=== PATIENT | female | born 1960 | race Caucasian/White ===

== ENCOUNTER 2016-03-19 15:34 | Outpatient (RCR) | payer MEDICARE, MEDICAID ==
--- OUTSIDE RECORDS SUMMARY | 2016-01-16 10:59 | XMS REPORT | Continuity of Care Document ---
Author Author [facility] Organization 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 Medications Current Home Medications Medication Dose Units Route Directions Days/Qty Instructions Start Date Aspirin 325 Mg 325 Mg Oral Daily 07/29/11 Gabapentin 300 Mg 300 Mg Oral Three Times A Day 08/28/13 Cholecalciferol (Vitamin D3) 1,000 Unit 1,000 Unit Oral Twice A Day 08/28/13 Buspirone Hcl 15 Mg 15 Mg Oral Three Times A Day 03/06/14 Multivits W-Fe,Other Min/Lut 1 Each 1 Each Oral Daily 03/06/14 Montelukast Sodium 10 Mg 10 Mg Oral Daily 03/06/14 Calcium Carbonate/Vitamin D3 1 Each 1 Each Oral Three Times A Day Oxycodone Hcl/Acetaminophen 1 Tab 1 Tab Oral Four Times Daily Docusate Sodium 100 Mg 100 Mg Oral Daily 09/13/14 Chromium/Herbal Complex No.238 1 Each 1 Each Oral Twice A Day Fluticasone Propionate 9.9 Ml 1 [place] Nasal Daily 07/08/15 Hydrochlorothiazide 12.5 Mg 12.5 Mg Oral Daily 07/08/15 Loratadine 10 Mg 10 Mg Oral Daily 07/08/15 Omeprazole 20 Mg 20 Mg Oral Daily 07/08/15 Lactobacillus Acidophilus 1 Each 1 Each Oral Three Times A Day 07/07 Levothyroxine Sodium 50 Mcg 50 Mcg Oral Daily 07/08/15 Levothyroxine Sodium 112 Mcg 112 Mcg Oral Daily 07/08/15 Ascorbic Acid 500 Mg 500 Mg Oral Daily 07/08/15 Lansoprazole 15 Mg 15 Mg Oral Daily 07/08/15 Estrogens Conjugated 30 Gm 0.625 Mg Vaginal Daily 07/08/15 Ginkgo Biloba Extract 120 Mg 120 Mg Oral Twice A Day 07/08/15 L.acidoph & Paracasei,B.lactis 1 Each 2 Each Oral Daily 07/08/15 Echinacea 400 Mg 400 Mg Oral As Needed as needed for Congestion 11/14 Past Home Medications Medication Directions Ordered Status [Water Pill] , 02/10/08 Discontinued Lansoprazole 30 Mg Cap, 02/10/08 Discontinued Meloxicam 7.5 Mg Tablet, 02/10/08 Discontinued Hydrochlorothiazide 12.5 Mg Cap, 02/10/08 Discontinued Multivitamins 1 Ea Tablet, 1 Tab Oral Daily 02/10/08 Discontinued Biotin 1,000 Mcg Tablet, 02/10/08 Discontinued Hydrocodone Bit/Acetaminophen 1 Each Tablet, 1 Each Oral Twice A Day Discontinued Levothyroxine Sodium 200 Mcg Tablet, 200 Mcg Oral Daily 07/29/11 Discontinued Levothyroxine Sodium 175 Mcg Tablet, 1 Each Oral Every Other Day 07/29/11 Discontinued Gabapentin 100 Mg Cap, 100 Mg Oral Three Times A Day 07/29/11 Discontinued Buspirone Hcl 5 Mg Tablet, 1.5 Tab Oral Three Times A Day 07/29/11 Discontinued [Hctz] , 07/29/11 Discontinued Buspirone Hcl 5 Mg Tablet, 7.5 Mg Oral Q Am And Noon 09/07/11 Discontinued Hydrochlorothiazide 25 Mg Tab, 0.5 Tab Oral Bedtime 09/07/11 Discontinued Buspirone Hcl 5 Mg Tablet, 15 Mg Oral Three Times A Day 09/07/11 Discontinued [Alive] , 1 Tab Oral Daily 09/07/11 Discontinued Lansoprazole 15 Mg Capsule.dr, 15 Mg Oral Bedtime 09/07/11 Discontinued Acetaminophen/Hydrocodone Bitart 1 Ea Tablet, 1 Tab Oral Four Times Daily Discontinued Echinacea 400 Mg Capsule, 750 Mg Oral Twice A Day 06/20/12 Discontinued Pravastatin Sodium 80 Mg Tablet, 40 Mg Oral Three Times A Day 06/20/12 Discontinued Potassium Gluconate 90 Mg Tablet, 595 Mg Oral Twice A Day 06/20/12 Discontinued Green Tea [place] Extract 250 Mg Capsule, 400 Mg Oral Three Times A Day Discontinued Fluticasone Propionate 16 Gm [place], 2 Sprays Each Nostril Daily 06/20/12 Discontinued [Calcium] , 500 Mg Oral Twice A Day 06/20/12 Discontinued Multivitamin 1 Each Tablet, 2 Each Oral Daily 06/20/12 Discontinued [Levothyroxine Sodium] , 162 Mcg Oral Daily 08/28/13 Discontinued Hydrochlorothiazide 12.5 Mg Tablet, 12.5 Mg Oral Bedtime 08/28/13 Discontinued Echinacea Purpurea Aerial 350 Mg Capsule, 350 Mg Oral Twice A Day 08/28/13 Discontinued Pravastatin Sodium 40 Mg Tablet, 40 Mg Oral Bedtime 08/28/13 Discontinued Calcium Carbonate/Vitamin D3 1 Each Tablet, 2 Tab Oral Daily 08/28/13 Discontinued Metformin Hcl (Glucophage) 500 Mg Tablet, 500 Mg Oral Twice A Day With Meals 08/28/13 Discontinued Pseudoephedrine Hcl 30 Mg Tab, 60 Mg Oral Twice A Day 08/28/13 Discontinued Selenium 200 Mcg Capsule, 200 Mcg Oral Three Times A Day 08/28/13 Discontinued Gluc 2KCL/Chondr/Monica Hy/Hy Ac 1 Each Capsule, 1 Tab Oral Daily 08/28/13 Discontinued Docusate Sodium 100 Mg Tablet, 100 Mg Oral Twice A Day as needed for Constipation 08/28/13 Discontinued Lactobac Cmb #3/Fos/Pantethine 1 Each Capsule, 1 Cap Oral Three Times A Day 08/28/13 Discontinued Meclizine Hcl 25 Mg Tab.chew, 25 Mg Oral Daily as needed for Motion Sickness 08/28/13 Discontinued Cetirizine Hcl 10 Mg Capsule, 10 Mg Oral Daily 08/28/13 Discontinued Hydrocodone Bit/Acetaminophen 1 Each Tablet, 1 Each Oral Every 4HRS as needed for Pain 03/08/14 Discontinued Docusate Sodium 100 Mg Cap, 100 Mg Oral Twice A Day 03/08/14 Discontinued Hydrochlorothiazide 25 Mg Tablet, 25 Mg Oral Bedtime 09/13/14 Discontinued [Echinacea Whole Herb] , 750 Mg Oral Twice A Day 09/13/14 Discontinued [Potassium Gluconate] , 595 Mg Oral Twice A Day 09/13/14 Discontinued Mometasone Furoate 17 Gm Naspr, 1 [place] Each Nostril Twice A Day 09/13/14 Discontinued Social History Social History Problem Response Recorded Date/Time Alcohol Use Occasionally Uses 07/11/2015 9:15am Recreational Drug Use No 07/11/2015 9:15am Recent Foreign Travel No 07/11/2015 9:15am HIV/AIDS No 07/11/2015 9:15am Smoking Status Never a Smoker 07/11/2015 9:15am Query Response Start Date Stop Date Smoking Status Never a Smoker Hospital Discharge Instructions Patient Instructions Physician Instructions Plan of Care/Instructions/FU: 13 days [place] Activity as Tolerated: Yes Discharge Diet: Regular Diet Other Inst to Patient Follow up Appt: Make appointment for 1 week. Instructions: No strenuous activity. May shower in 24 hours, no tub bath or soaking. Use incentive spirometer at home as directed. No Smoking Skin/Wound Care: May remove bandages in 24 hours. Keep clean and dry. Symptoms to Report: Appetite Changes, Extremity Discoloration, Numbness/Tingling, Swelling Increased, Bleeding Excessive, Eyesight Changes, Pain Increased, Urine Color Change, Constipation(Persistent), Fever over 101 degree F, Pain/Pressure in chest, Urinating Difficulty, Cough Up/Vomit Blood, Heart Beat Irreg/Pounding, Pain/Pressure in jaw, Vaginal Bleeding Increase, Cramps in feet or legs, Lightheadedness, Pain/Pressure in shoulder, Diarrhea(Persistent), Memory Changes Suddenly, Questions/Concerns, Weight gain consecutive days, Dizziness/Fainting, Nausea/Vomiting, Shortness of Breath, Weight gain over 2 pounds If questions or concerns contact your physician Or seek help at emergency department. Care Plan Patient Instructions:: 13 days [place] Plan of Care Discharge Date 07/11/15 1:50pm Instructions/Education Provided ANESTHESIA INSTRUCTIONS POSTOP Lipoma (DC) Prescriptions See Medication Section Functional Status No functional status results. Allergies, Adverse Reactions, Alerts Allergen Type Severity Reaction Status Last Updated Penicillins ([id number]) Adverse Reaction Mild N/V, HAS RECEIVED ANCEF W/O PROBLEM Active 09/20/14 Sulfa (Sulfonamide Antibiotics) ([id number]) Allergy Severe TETANY Active 02/10/08 tetracycline ([id number]) Adverse Reaction Mild N/V Active 02/10/08 Erythromycin base Allergy Unknown projectile vomitin Active 03/06/14 clavulanic acid ([id number]) Allergy Unknown head fullness Active 03/06/14 amoxicillin ([id number]) Adverse Reaction Mild N/V Active 02/10/08 meloxicam ([id number]) Allergy Unknown memory loss Active 03/06/14 Immunizations Name Given Type Date of Pneumonia Vaccine 03/08/12 Historical Date of Influenza Vaccine 11/29/13 Historical Vital Signs Acute Vital Signs Vital Response Date/Time Temperature (Fahrenheit) 97.7 degrees F (97.6 - 99.5) 07/11/2015 12:40pm Temperature (Calculated Celsius) 36.13565 degrees C (36.4 - 37.5) 07/11/2015 12:40pm Temperature Source Temporal 07/11/2015 12:40pm Pulse Rate (adult) 85 bpm (60 - 90) 07/11/2015 12:40pm Respiratory Rate 18 bpm (12 - 24) 07/11/2015 12:40pm O2 Sat by Pulse Oximetry 96 % (88 - 100) 07/11/2015 12:40pm Blood Pressure 115/82 mm Hg 07/11/2015 12:40pm Pain Pain Intensity 6 07/11/2015 12:40pm Height (Feet) 5 feet 07/11/2015 9:15am Height (Inches) 9.50 inches 07/11/2015 9:15am Height (Calculated Centimeters) 176.061103 cm 07/11/2015 9:15am Weight (Pounds) 328 pounds 07/11/2015 9:15am Weight (Ounces) 8.0 oz 07/11/2015 9:15am Weight (Calculated Grams) 425578.095 gm 07/11/2015 9:15am Weight (Calculated Kilograms) 149.864085 kilograms 07/11/2015 9:15am Calculated BMI 47.8 07/11/2015 9:15am Results Pending Laboratory Results Test Name Collection Date/Time Pending Microbiology Results Procedure Source Collection Date/Time Procedures Procedure Status Date Provider(s) Excision of lesion Completed 07/11/15 DADA OSBORN DO Encounters Encounter Location Arrival/Admit Date Discharge/Depart Date Attending Provider Departed Surgical Day Care [facility] 07/11/15 8:55am 1:50pm DADA OSBORN DO Departed Clinic [facility] 07/08/15 12:32pm 07/08/15 3: 43pm DADA OSBORN DO
[2016-02-10 09:25] LABS: BASOPHILS # (AUTO) 0.1 10^3/uL (0.0-0.1); BASOPHILS % (AUTO) 1 % (0-10); EOSINOPHILS # (AUTO) 0.4 10^3/uL (0.0-0.3); EOSINOPHILS % (AUTO) 5 % (0-10); LYMPHOCYTES # (AUTO) 1.5 X 10^3 (1.0-4.0); LYMPHOCYTES % (AUTO) 19 % (12-44); MEAN CORPUSCULAR HEMOGLOBIN 29 PG (25-34); MEAN CORPUSCULAR HGB CONC 33 G/DL (32-36); MEAN CORPUSCULAR VOLUME 85 FL (80-99); MEAN PLATELET VOLUME 9.3 FL (7.4-10.4); MONOCYTES # (AUTO) 0.7 X 10^3 (0.0-1.0); MONOCYTES % (AUTO) 8 % (0-12); NEUTROPHILS # (AUTO) 5.3 X 10^3 (1.8-7.8); NEUTROPHILS % (AUTO) 67 % (42-75); PLATELET COUNT 347 10^3/uL (130-400); RED BLOOD COUNT 4.67 10^6/uL (4.35-5.85); RED CELL DISTRIBUTION WIDTH 14.4 % (10.0-14.5); WHITE BLOOD COUNT 7.9 10^3/uL (4.3-11.0)
[2016-02-10 09:57] LABS: ALANINE AMINOTRANSFERASE 29 U/L (0-55); ALBUMIN 4.2 G/DL (3.2-4.5); ANION GAP 10 MMOL/L (5-14); ASPARTATE AMINO TRANSFERASE 24 U/L (5-34); BILIRUBIN,TOTAL 0.3 MG/DL (0.1-1.0); BLOOD UREA NITROGEN 16 MG/DL (7-18); BUN/CREATININE RATIO 21; CALCIUM 9.3 MG/DL (8.5-10.1); CARBON DIOXIDE 26 MMOL/L (21-32); CHLORIDE 104 MMOL/L (98-107); CREATININE SERUM 0.78 MG/DL (0.60-1.30); GFR ESTIMATED > 60; GLUCOSE 118 MG/DL (70-105); POTASSIUM 3.8 MMOL/L (3.6-5.0); SODIUM 140 MMOL/L (135-145); TOTAL PROTEIN 7.1 G/DL (6.4-8.2)
[2016-02-10 10:17] LABS: THYROID STIMULATING HORMONE 6.47 UIU/ML (0.35-4.94)
[2016-02-11 07:59] LABS: THYROGLOBULIN LEVELC <0.20 ng/mL (1.60-59.90)
[~2016-03-19 15:34] MED LIST: ALIVE PO; ASCO500T6 PO; ASP325TEC PO; BSP5T PO; BUSP15TA60 PO; CALC-656 PO; CALC-80 PO; CALCIUM PO; CETI10CA8 PO; CHOL100061 PO; CHRO1TAB8 PO; DCS100C PO; DOCU100T2 PO; DOCU100T7 PO; ECHI350C PO; ECHI400C16 PO; ECHI400C3 PO; ECHINACEA PO; EST30C VG; FLT05NA16 NSEACH; FLUT9.9S NS; GABA-488 PO; GBPN100C PO; GINK120C PO; GLUC-113 PO; GREE250C PO; HCT25T PO; HCTZ12.5T; HYDR-34 PO; HYDR-3454 PO; HYDR12.5 PO; HYDR12.56 PO; HYDR1TAB86 PO; HYDR25TA4 PO; L.AC1CAP6 PO; LACT1CAP28 PO; LACT1CAP57 PO; LANS15CA PO; LANS15CA5 PO; LEVO112T55 PO; LEVO175T2 PO; LEVO200T30 PO; LEVO50TA6 PO; LNS30CCR; LORA10TA76 PO; Levothyroxine Sodium PO; MECL-133 PO; MELO7.5T; MMT17NA NSEACH; MONT10TA24 PO; MTF500T PO; MULT-856 PO; MULT-963 PO; MULT1TAB63 PO; NFBIOT1000; OMEP20TA7 PO; OXYC1TAB25 PO; POTA2TAB2 PO; POTASSIUM GLUCONATE PO; PRAV40TA PO; PRAV80TA2 PO; PS30T PO; SELE200C PO; WATER PILL; hctz
== END 2016-04-15 | disposition home or self-care (01) ==
LOC: ONC 15:34
PROVIDERS: ATTEND Internal Medicine Hematology & Oncology
DX: C73 Malignant neoplasm of thyroid gland (principal); E89.0 Postprocedural hypothyroidism; E66.9 Obesity, unspecified; Z79.899 Other long term (current) drug therapy
CPT/HCPCS: 36415; 80053; 84432; 84443; 85025; 86800; 99213

== ENCOUNTER 2016-04-11 17:56 | Emergency (ER) | payer MEDICARE, MEDICAID ==
[~2016-04-11] VITALS: Ht 175.3 cm; Wt 149.7 kg
--- OUTSIDE RECORDS SUMMARY | 2016-04-11 18:01 | XMS REPORT | Continuity of Care Document ---
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.] Twice A Day 06/20/12 Discontinued Green Tea [address] Extract 250 Mg Capsule, 400 Mg Oral Three Times A Day Discontinued Fluticasone Propionate 16 Gm [place], 2 Sprays Each Nostril Daily 06/20/12 Discontinued [...] Discontinued Mometasone Furoate 17 Gm Naspr, 1 [place] Each Nostril Twice A Day 09/13/14 Discontinued [...] Physician Instructions Plan of Care/Instructions/FU: 13 days [place] Activity as Tolerated: Yes Discharge Diet: Regular [...] department. Care Plan Patient Instructions:: 13 days [place] Plan of Care Discharge Date 07/11/15 1:50pm Instructions/Education Provided ANESTHESIA INSTRUCTIONS POSTOP Lipoma (DC) Prescriptions See Medication Section Functional Status No functional status results. Allergies, Adverse Reactions, Alerts Allergen Type Severity Reaction Status Last Updated Penicillins ([id number]) Adverse Reaction Mild N/V, HAS RECEIVED ANCEF W/O PROBLEM Active 09/20/14 Sulfa (Sulfonamide Antibiotics) ([id number]) Allergy Severe TETANY Active 02/10/08 tetracycline ([id number]) Adverse Reaction Mild N/V Active 02/10/08 Erythromycin base Allergy Unknown projectile vomitin Active 03/06/14 clavulanic acid ([id number]) Allergy Unknown head fullness Active 03/06/14 amoxicillin ([id number]) Adverse Reaction Mild N/V Active 02/10/08 meloxicam ([id number]) Allergy Unknown memory loss Active 03/06/14 Immunizations Name Given Type Date of Pneumonia Vaccine 03/08/12 Historical Date of Influenza Vaccine 11/29/13 Historical Vital Signs Acute Vital Signs Vital Response Date/Time Temperature (Fahrenheit) 97.7 degrees F (97.6 - 99.5) 07/11/2015 12:40pm Temperature (Calculated Celsius) 36.86533 degrees C (36.4 - 37.5) 07/11/2015 12:40pm [...] 9.50 inches 07/11/2015 9:15am Height (Calculated Centimeters) 176.937067 cm 07/11/2015 9:15am Weight (Pounds) 328 pounds 07/11/2015 9:15am Weight (Ounces) 8.0 oz 07/11/2015 9:15am Weight (Calculated Grams) 801152.095 gm 07/11/2015 9:15am Weight (Calculated Kilograms) 149.015289 kilograms 07/11/2015 9:15am Calculated BMI 47.8 07/11/2015 9:15am Results Pending Laboratory Results Test Name Collection Date/Time Pending Microbiology Results Procedure Source Collection Date/Time Procedures Procedure Status Date Provider(s) Excision of lesion Completed 07/11/15 DADA OSBORN DO Encounters Encounter Location Arrival/Admit Date Discharge/Depart Date Attending Provider Departed Surgical Day Care [facility] 07/11/15 8:55am 1:50pm DADA OSBORN DO Departed Clinic [facility] 07/08/15 12:32pm 07/08/15 3: 43pm DADA OSBORN DO
[2016-04-11 19:08] VITALS: BP 150/87
[2016-04-11] MEDS ORDERED: oxyCODONE/APAP 5/325MG (PERCOCET 5) TABLET PO STA (21:11)
[2016-04-11] MEDS ORDERED: CYCLOBENZAPRINE 10 MG (FLEXERIL) TAB PO STA (21:11)
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
[2016-04-11 21:22] LABS: BILIRUBIN,URINE NEGATIVE (NEGATIVE); KETONES,URINE NEGATIVE (NEGATIVE); NITRITE,URINE NEGATIVE (NEGATIVE); PH,URINE 6.5 (5-9); PROTEIN,URINE NEGATIVE (NEGATIVE)
[2016-04-11 21:23] LABS: LEUKOCYTE ESTERASE ,URINE NEGATIVE (NEGATIVE); UROBILINOGEN,URINE NORMAL (NORMAL); WBC,URINE RARE /HPF
[2016-04-11 22:47] LABS: BASOPHILS # (AUTO) 0.1 10^3/uL (0.0-0.1); BASOPHILS % (AUTO) 1 % (0-10); EOSINOPHILS # (AUTO) 0.2 10^3/uL (0.0-0.3); EOSINOPHILS % (AUTO) 3 % (0-10); LYMPHOCYTES # (AUTO) 2.3 X 10^3 (1.0-4.0); LYMPHOCYTES % (AUTO) 28 % (12-44); MEAN CORPUSCULAR HEMOGLOBIN 29 PG (25-34); MEAN CORPUSCULAR HGB CONC 34 G/DL (32-36); MEAN CORPUSCULAR VOLUME 85 FL (80-99); MEAN PLATELET VOLUME 9.5 FL (7.4-10.4); MONOCYTES # (AUTO) 0.6 X 10^3 (0.0-1.0); MONOCYTES % (AUTO) 8 % (0-12); NEUTROPHILS # (AUTO) 4.8 X 10^3 (1.8-7.8); NEUTROPHILS % (AUTO) 61 % (42-75); PLATELET COUNT 322 10^3/uL (130-400); RED BLOOD COUNT 4.95 10^6/uL (4.35-5.85); RED CELL DISTRIBUTION WIDTH 13.9 % (10.0-14.5)
[2016-04-11 23:02] LABS: ALANINE AMINOTRANSFERASE 29 U/L (0-55); ALBUMIN 4.2 G/DL (3.2-4.5); ANION GAP 14 MMOL/L (5-14); ASPARTATE AMINO TRANSFERASE 24 U/L (5-34); BILIRUBIN,TOTAL 0.4 MG/DL (0.1-1.0); BLOOD UREA NITROGEN 10 MG/DL (7-18); BUN/CREATININE RATIO 12; CALCIUM 9.8 MG/DL (8.5-10.1); CARBON DIOXIDE 25 MMOL/L (21-32); CHLORIDE 100 MMOL/L (98-107); CREATININE SERUM 0.86 MG/DL (0.60-1.30); GFR ESTIMATED > 60; GLUCOSE 141 MG/DL (70-105); POTASSIUM 3.6 MMOL/L (3.6-5.0); SODIUM 139 MMOL/L (135-145); TOTAL PROTEIN 7.5 G/DL (6.4-8.2)
== END 2016-04-11 23:26 | disposition home or self-care (01) ==
LOC: EDUNIT# 17:56 → ER 17:57
DX: S39.012A Strain of muscle, fascia and tendon of lower back, initial encounter (principal); E11.9 Type 2 diabetes mellitus without complications; Z79.82 Long term (current) use of aspirin; Z79.899 Other long term (current) drug therapy; X58.XXXA Exposure to other specified factors, initial encounter; Y99.8 Other external cause status
CPT/HCPCS: 36415; 80053; 81000; 85025; 99283

== ENCOUNTER → 2016-09-15 | Outpatient (CLI) | payer MEDICARE, MEDICAID ==
--- NOTE | 2016-09-15 20:07 | Diagnostic Imaging Report ---
Ultrasound of the right axilla. INDICATION: Lump felt in the axilla region. FINDINGS: The right axilla is scanned around the palpable area with no underlying lesion seen. IMPRESSION: Negative study. Clinical follow-up is recommended. ACR BI-RADS Category 1: Negative. Dictated by: Dictated on workstation # [id number]
== END ==
LOC: RAD 09:21
PROVIDERS: ATTEND Surgery
DX: R22.9 Localized swelling, mass and lump, unspecified (principal)

== ENCOUNTER 2016-12-17 23:04 | Emergency (ER) | payer MEDICARE, MEDICAID ==
[~2016-12-17] VITALS: Ht 175.3 cm; Wt 149.7 kg
--- OUTSIDE RECORDS SUMMARY | 2016-12-17 23:18 | XMS REPORT ---
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 89524960 Problem Pain in joint, ankle and foot M25.579 Active 609190085 Problem Lipoma of unspecified site D17.9 Active 42510694 Problem Neuropathy G62.9 Active 527545405 Problem Skin tags, multiple acquired L91.8 Active 983832731 Problem Lump or mass in breast N63 Active 08522466 Problem Dysfunction of eustachian tube H69.80 Active 29138413 Problem Stress incontinence in female N39.3 Active 06133842 Problem History of thyroid cancer Z85.850 Active 369372780 Problem Dizziness and giddiness R42 Active 010914398 Problem Myalgia M79.1 Active 52627052 Problem Obesity, unspecified E66.9 Active 891611112 Problem Hypothyroidism, unspecified E03.9 Active 435988546 Problem Other chronic pain G89.29 Active 396937904 Problem Migraine without aura and without status migrainosus, not intractable G43.009 Active 634884841 Problem Anxiety disorder, unspecified F41.9 Active 974743518 Problem Dysmetabolic syndrome E88.81 Active 531661752 ALLERGIES Unknown Allergies SOCIAL HISTORY No smoking Hx information available PLAN OF CARE VITAL SIGNS MEDICATIONS Medication Instructions Dosage Frequency Start Date End Date Duration Status SudoGest 60 mg Orally every 6 hrs as needed 1 tablet as needed Active RESULTS No Results PROCEDURES No Known procedures IMMUNIZATIONS No Known Immunizations
--- OUTSIDE RECORDS SUMMARY | 2016-12-17 23:18 | XMS REPORT ---
Author Author WING RAO Organization [employer] Address Unknown Phone Unavailable Care Team Providers Care Towboat Captain Name Role Phone WING RAO CP Unavailable Allergies No Known Allergies Problems Problem Type Condition ICD-9 Code Onset Dates Condition Status Problem Unspecified hypothyroidism 244.9 Active Problem Shortness of breath 786.05 Active Problem Obesity, unspecified 278.00 Active Problem Unspecified myalgia and myositis 729.1 Active Problem Dysfunction of Eustachian tube 381.81 Active Problem Migraine without aura, without mention of intractable migraine without mention of status migrainosus 346.10 Active Problem Lipoma of unspecified site 214.9 Active Problem Need for prophylactic vaccination and inoculation, Influenza V04.81 Active Problem Pain in joint, ankle and foot 719.47 Active Problem Acute sinusitis, unspecified 461.9 Active Problem Lump or mass in breast 611.72 Active Problem Intestinal disaccharidase deficiencies and disaccharide malabsorption 271.3 Active Problem Benign neoplasm of skin, site unspecified 216.9 Active Problem Dizziness and giddiness 780.4 Active Problem Anxiety state, unspecified 300.00 Active Problem Dysmetabolic Syndrome X 277.7 Active Problem Other chronic pain 338.29 Active Medications Medication Code System Code Instructions Start Date End Date Status Dosage Oxycodone-Acetaminophen [facility] [address]-97 5-325 MG Orally 4 times a day. PT MUST SCHEDULE F/U FOR FURTHER REFILLS July 25, 2014 1 tablet as needed Results No Known Results Summary Purpose [employer] Submission
--- OUTSIDE RECORDS SUMMARY | 2016-12-17 23:18 | XMS REPORT ---
Author Author WING RAO Organization [employer] Address Unknown Phone Unavailable Care Team Providers Care Bathroom Tiling Professional Name Role Phone WING RAO CP Unavailable Allergies No Known Allergies Problems Problem Type Condition Code Onset Dates Condition Status Problem Hypothyroidism, unspecified E03.9 Active Problem Lipoma of unspecified site D17.9 Active Problem Obesity, unspecified E66.9 Active Problem History of thyroid cancer Z85.850 Active Problem Skin tags, multiple acquired L91.8 Active Problem Stress incontinence in female N39.3 Active Problem Dysfunction of eustachian tube H69.80 Active Problem Pain in joint, ankle and foot M25.579 Active Problem Migraine without aura and without status migrainosus, not intractable G43.009 Active Problem Myalgia M79.1 Active Problem Dysmetabolic syndrome E88.81 Active 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 Results No Known Results Summary Purpose [employer] Submission
--- OUTSIDE RECORDS SUMMARY | 2016-12-17 23:18 | XMS REPORT ---
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 13802932 Problem Pain in joint, ankle and foot M25.579 Active 286191112 Problem Lipoma of unspecified site D17.9 Active 46114040 Problem Neuropathy G62.9 Active 459548136 Problem Skin tags, multiple acquired L91.8 Active 936254442 Problem Lump or mass in breast N63 Active 49919729 Problem Dysfunction of eustachian tube H69.80 Active 17305284 Problem Stress incontinence in female N39.3 Active 45255743 Problem History of thyroid cancer Z85.850 Active 809767740 Problem Dizziness and giddiness R42 Active 915562507 Problem Myalgia M79.1 Active 63306592 Problem Obesity, unspecified E66.9 Active 653177553 Problem Hypothyroidism, unspecified E03.9 Active 727078840 Problem Other chronic pain G89.29 Active 588669922 Problem Migraine without aura and without status migrainosus, not intractable G43.009 Active 088725580 Problem Anxiety disorder, unspecified F41.9 Active 081446261 Problem Dysmetabolic syndrome E88.81 Active 885861003 ALLERGIES Substance Reaction Event Type Date Status Tetra-Formula/Tetra-Ettes Unknown Drug Allergy Mar, Active Sulfamethoxazole-TMP DS Unknown Drug Allergy Mar, Active Penicillin V Potassium Unknown Drug Allergy Mar, Active Meloxicam Unknown Drug Allergy Mar, Active Bee Venom (honey Bee) Unknown Non Drug Allergy Mar, Active SOCIAL HISTORY No smoking Hx information available PLAN OF CARE VITAL SIGNS Height 68.75 in 2016-03-27 Weight 331.3 lbs 2016-03-27 Temperature 98.2 degrees Fahrenheit 2016-03-27 Heart Rate 74 bpm 2016-03-27 Respiratory Rate 22 2016-03-27 BMI 49.28 kg/m2 2016-03-27 Blood pressure systolic 126 mmHg 2016-03-27 Blood pressure diastolic 70 mmHg 2016-03-27 MEDICATIONS Medication Instructions Dosage Frequency Start Date End Date Duration Status Flonase 50 MCG/ACT Nasally 2 times a day 1 spray in each nostril 12h 30 Active Premarin 0.625 MG/GM Active Claritin 10 MG Orally Once a day 1 tablet 24h 30 Active Aspirin 325 mg take 1 tablet (325 mg) by oral route once daily Nov, Active Emergen-C Vitamin C Active BusPIRone HCl 15 MG TAKE ONE TABLET BY MOUTH THREE TIMES DAILY 30 Active Hydrochlorothiazide 12.5 MG Orally Once a day 1 tablet 24h 30 Active Omeprazole 20 mg 1 capsule 24h 30 Active Centrum Silver 1 Tablet 1 time per day June, Active Colace 100 mg take 1 capsule (100 mg) by oral route once daily June, Active Levothyroxine Sodium 175 MCG Orally Once a day 1 tablet 24h Active Oxycodone-Acetaminophen 5-325 MG Orally 4 times a day. 1 tablet as needed Mar, 28 days Active Vitamin D3 1,000 unit 5 1 time per day June, Active Acidophilus 1 Capsule 3 times per day June, Active SudoGest 60 mg Orally every 6 hrs as needed 1 tablet as needed Active Gabapentin 300 MG TAKE ONE CAPSULE BY MOUTH THREE TIMES DAILY 30 Active Green Tea 200 MG Active Singulair 10 MG TAKE ONE TABLET BY MOUTH ONCE DAILY 30 Active RESULTS Name Result Date Reference Range AMERITOX 2016-03-27 PROCEDURES Procedure Date Ordered Related Diagnosis Body Site No Charge Mar 27, 2016 [facility] VISIT ESTABLISHED PATIENT Mar 27, 2016 Office Visit, Est Pt., Level 3 Mar 27, 2016 IMMUNIZATIONS No Known Immunizations
--- OUTSIDE RECORDS SUMMARY | 2016-12-17 23:18 | XMS REPORT ---
Author Author WING RAO Organization [employer] Address Unknown Phone Unavailable Care Team Providers Care Service Delivery Director Name Role Phone WING RAO CP Unavailable Allergies, Adverse Reactions, Alerts Substance Reaction Event Type Tetra-Formula/Tetra-Ettes Info Not Available Drug Allergy Sulfamethoxazole-TMP DS Info Not Available Drug Allergy Penicillin V Potassium Info Not Available Drug Allergy Meloxicam Info Not Available Drug Allergy Bee Venom (honey Bee) Info Not Available Non Drug Allergy Problems Problem Type Condition Code Onset Dates Condition Status Problem Unspecified hypothyroidism 244.9 Active Problem Shortness of breath 786.05 Active Problem Obesity, unspecified 278.00 Active Problem Unspecified myalgia and myositis 729.1 Active Assessment Bilateral tinnitus H93.13 Active Problem Dysfunction of Eustachian tube 381.81 Active Assessment Fibromyalgia M79.7 Active Assessment Headache R51 Active Problem Migraine without aura, without mention of intractable migraine without mention of status migrainosus 346.10 Active Problem Lipoma of unspecified site 214.9 Active Problem Need for prophylactic vaccination and inoculation, Influenza V04.81 Active Problem Pain in joint, ankle and foot 719.47 Active Problem Acute sinusitis, unspecified 461.9 Active Assessment Hip pain, left M25.552 Active Problem Lump or mass in breast 611.72 Active Assessment GERD (gastroesophageal reflux disease) K21.9 Active Assessment Knee pain, right M25.561 Active Problem Intestinal disaccharidase deficiencies and disaccharide malabsorption 271.3 Active Problem Benign neoplasm of skin, site unspecified 216.9 Active Problem Dizziness and giddiness 780.4 Active Problem Anxiety state, unspecified 300.00 Active Assessment Obesity (BMI 35.0-39.9 without comorbidity) E66.01 Active Problem Dysmetabolic Syndrome X 277.7 Active Problem Other chronic pain 338.29 Active Medications Medication Code System Code Instructions Start Date End Date Status Dosage Pantoprazole Sodium [facility] [address]-16 40 MG Orally Once a day Dec 07, 2014 1 tablet Singulair [facility] 25919576591 10 MG TAKE ONE TABLET BY MOUTH ONCE DAILY Claritin [facility] 16533811906 10 MG Orally Once a day 1 tablet Pseudoephedrine HCl [facility] [address]-50 60 MG Orally every 6 hrs Dec 07, 2014 1 tablet as needed Levothyroxine Sodium [facility] [address]-90 112 MCG Orally Once a day 1 tablet MetFORMIN HCl ER [facility] 46094332638 500 MG TAKE ONE TABLET BY MOUTH TWICE DAILY Levothyroxine Sodium [facility] [address]-54 50 MCG Orally Once a day 1 tablet Gabapentin [facility] 92307255702 300 MG TAKE ONE CAPSULE BY MOUTH THREE TIMES DAILY pravastatin [facility] [address]-08 40 mg Feb 26, 2014 1 tablet by Oral route 1 time per day Take at bedtime. Avoid Grapefruit Vitamin D3 [facility] 338[address]78 1,000 unit July 26, 2013 5 1 time per day Acidophilus [facility] [address]-91 July 26, 2013 1 Capsule 3 times per day Centrum Silver [facility] [address]-45 July 26, 2013 1 Tablet 1 time per day Oxycodone-Acetaminophen [facility] [address]-28 5-325 MG Orally 4 times a day. PT MUST ATTEND 11/28 APPT FOR FURTHER REFILLS July 25, 2014 1 tablet as needed BusPIRone HCl [facility] 56210222188 15 MG TAKE ONE TABLET BY MOUTH THREE TIMES DAILY Selenium [facility] 16363-[address]94 200 mcg July 26, 2013 3 times per day Flonase [facility] 96939646998 50 MCG/ACT Nasally 2 times a day 1 spray in each nostril Aspirin [facility] [address]-69 325 mg Dec 24, 2011 take 1 tablet (325 mg) by oral route once daily Colace [facility] [address]-00 100 mg July 26, 2013 take 1 capsule (100 mg) by oral route once daily Procedures Procedure Coding System Code Date X-RAY EXAM OF KNEE, 1 OR 2 CPT-4 52098 Dec 07, 2014 [facility] VISIT ESTABLISHED PATIENT CPT-4 G0467 Dec 07, 2014 X-RAY EXAM OF HIP CPT-4 97212 Dec 07, 2014 Office Visit, Est Pt., Level 3 CPT-4 70089 Dec 07, 2014 Vital Signs Date/Time: Dec 07, 2014 Temperature 97.2 F Weight 322 lbs Height 70 in BMI 46.20 Index Blood Pressure Diastolic 72 mmHg Blood Pressure Systolic 126 mmHg Cardiac Monitoring Heart Rate 88 bpm Results No Known Results Summary Purpose [employer] Submission
--- OUTSIDE RECORDS SUMMARY | 2016-12-17 23:18 | XMS REPORT ---
Author Author WING RAO Organization [employer] Address Unknown Phone Unavailable Care Team Providers Care Lease Out Man Name Role Phone WING RAO CP Unavailable [...] Start Date End Date Status Dosage Oxycodone-Acetaminophen [facility] [address]-55 5-325 MG Orally 4 times a day. July 25, 2014 1 tablet as needed Results No Known Results Summary Purpose [employer] Submission
--- OUTSIDE RECORDS SUMMARY | 2016-12-17 23:18 | XMS REPORT ---
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 77575166 Problem Pain in joint, ankle and foot M25.579 Active 840621054 Problem Lipoma of unspecified site D17.9 Active 69580512 Problem Neuropathy G62.9 Active 996641189 Problem Skin tags, multiple acquired L91.8 Active 518868082 Problem Lump or mass in breast N63 Active 72631097 Problem Dysfunction of eustachian tube H69.80 Active 68258066 Problem Stress incontinence in female N39.3 Active 48476492 Problem History of thyroid cancer Z85.850 Active 538421338 Problem Dizziness and giddiness R42 Active 241351643 Problem Myalgia M79.1 Active 02749434 Problem Obesity, unspecified E66.9 Active 744984766 Problem Hypothyroidism, unspecified E03.9 Active 138173686 Problem Other chronic pain G89.29 Active 828951983 Problem Migraine without aura and without status migrainosus, not intractable G43.009 Active 967244622 Problem Anxiety disorder, unspecified F41.9 Active 081790582 Problem Dysmetabolic syndrome E88.81 Active 870078601 ALLERGIES Substance Reaction Event Type Date Status Tramadol HCl Unknown Drug Allergy Apr, Active Tetra-Formula/Tetra-Ettes Unknown Drug Allergy Apr, Active Sulfamethoxazole-TMP DS Unknown Drug Allergy Apr, Active Penicillin V Potassium Unknown Drug Allergy Apr, Active Meloxicam Unknown Drug Allergy Apr, Active Augmentin Unknown Drug Allergy Apr, Active Bee Venom (honey Bee) Unknown Non Drug Allergy Apr, Active SOCIAL HISTORY No smoking Hx information available PLAN OF CARE Activity Details Follow Up prn Reason: VITAL SIGNS Height 68.75 in 2016-04-07 Weight 332.4 lbs 2016-04-07 Temperature 98.2 degrees Fahrenheit 2016-04-07 Heart Rate 78 bpm 2016-04-07 Respiratory Rate 20 2016-04-07 BMI 49.44 kg/m2 2016-04-07 Blood pressure systolic 128 mmHg 2016-04-07 Blood pressure diastolic 78 mmHg 2016-04-07 MEDICATIONS Medication Instructions Dosage Frequency Start Date End Date Duration Status Gabapentin 300 MG TAKE ONE CAPSULE BY MOUTH THREE TIMES DAILY 30 Active Aspirin 325 mg take 1 tablet (325 mg) by oral route once daily Nov, Active BusPIRone HCl 15 MG TAKE ONE TABLET BY MOUTH THREE TIMES DAILY 30 Active Oxycodone-Acetaminophen 5-325 MG Orally 4 times a day. 1 tablet as needed Mar, 28 days Active Claritin 10 MG Orally Once a day 1 tablet 24h 30 Active Levothyroxine Sodium 175 MCG Orally Once a day 1 tablet 24h Active Emergen-C Vitamin C Active Flonase 50 MCG/ACT Nasally 2 times a day 1 spray in each nostril 12h 30 Active Acidophilus 1 Capsule 3 times per day June, Active Colace 100 mg take 1 capsule (100 mg) by oral route once daily June, Active Hydrochlorothiazide 12.5 MG Orally Once a day 1 tablet 24h 30 Active Vitamin D3 1,000 unit 5 1 time per day June, Active Green Tea 200 MG Active Omeprazole 20 mg 1 capsule 24h 30 Active Centrum Silver 1 Tablet 1 time per day June, Active SudoGest 60 mg Orally every 6 hrs as needed 1 tablet as needed Active Premarin 0.625 MG/GM Active RESULTS No Results PROCEDURES Procedure Date Ordered Related Diagnosis Body Site [facility] VISIT ESTABLISHED PATIENT Apr 07, 2016 Office Visit, Est Pt., Level 3 Apr 07, 2016 IMMUNIZATIONS No Known Immunizations
--- OUTSIDE RECORDS SUMMARY | 2016-12-17 23:19 | XMS REPORT ---
Author Author WING RAO Organization [employer] Address Unknown Phone Unavailable Care Team Providers Care Hospice Volunteer Coordinator Name Role Phone WING RAO CP Unavailable [...] Start Date End Date Status Dosage Oxycodone-Acetaminophen [facility] [address]-14 5-325 MG Orally 4 times a day. July 25, 2014 1 tablet as needed Results No Known Results Summary Purpose [employer] Submission
--- OUTSIDE RECORDS SUMMARY | 2016-12-17 23:19 | XMS REPORT ---
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 98716039 Problem Pain in joint, ankle and foot M25.579 Active 475693492 Problem Lipoma of unspecified site D17.9 Active 58841982 Problem Neuropathy G62.9 Active 133400760 Problem Skin tags, multiple acquired L91.8 Active 809697268 Problem Lump or mass in breast N63 Active 52789984 Problem Dysfunction of eustachian tube H69.80 Active 50137922 Problem Stress incontinence in female N39.3 Active 52867289 Problem History of thyroid cancer Z85.850 Active 260554495 Problem Dizziness and giddiness R42 Active 853492755 Problem Myalgia M79.1 Active 34653566 Problem Obesity, unspecified E66.9 Active 518312892 Problem Hypothyroidism, unspecified E03.9 Active 431680077 Problem Other chronic pain G89.29 Active 671618238 Problem Migraine without aura and without status migrainosus, not intractable G43.009 Active 083625073 Problem Anxiety disorder, unspecified F41.9 Active 339271938 Problem Dysmetabolic syndrome E88.81 Active 376072356 ALLERGIES Unknown Allergies SOCIAL HISTORY No smoking Hx information available PLAN OF CARE VITAL SIGNS MEDICATIONS Medication Instructions Dosage Frequency Start Date End Date Duration Status SudoGest 60 mg Orally every 6 hrs as needed 1 tablet as needed Active RESULTS No Results PROCEDURES No Known procedures IMMUNIZATIONS No Known Immunizations
--- OUTSIDE RECORDS SUMMARY | 2016-12-17 23:19 | XMS REPORT ---
Author Author WING RAO Organization [employer] Address Unknown Phone Unavailable Care Team Providers Care Junior Web Developer Name Role Phone WING RAO CP Unavailable [...] Instructions Start Date End Date Status Dosage Pseudoephedrine HCl [facility] [address]-32 60 MG Orally every 6 hrs Dec 07, 2014 1 tablet as needed Results No Known Results Summary Purpose [employer] Submission
--- OUTSIDE RECORDS SUMMARY | 2016-12-17 23:19 | XMS REPORT ---
Author Author WING RAO Organization [employer] Address Unknown Phone Unavailable Care Team Providers Care Human Resources Manager Name Role Phone WING RAO CP Unavailable [...] Problem Other chronic pain 338.29 Active Medications No Known Medications Procedures Procedure Coding System Code Date LAB NOT BILLED BY [facility] CPT-4 NOBLL Dec 11, 2014 VENIPUNCT, ROUTINE* CPT-4 94045 Dec 11, 2014 GLYCATED HEMOGLOBIN TEST CPT-4 24148 Dec 11, 2014 Results Name Result Date Reference Range Unit Abnormality Flag ROUTINE VENIPUNCTURE Summary Purpose [employer] Submission
--- OUTSIDE RECORDS SUMMARY | 2016-12-17 23:19 | XMS REPORT ---
Author Author WING RAO Organization [employer] Address Unknown Phone Unavailable Care Team Providers Care Under Cutting Machine Operator Name Role Phone WING RAO CP Unavailable [...] Problem Other chronic pain G89.29 Active Medications No Known Medications Results No Known Results Summary Purpose [employer] Submission
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
--- OUTSIDE RECORDS SUMMARY | 2016-12-17 23:19 | XMS REPORT ---
Author Author JENNIFER PELAEZ [facility] eClinicalWorks Address Unknown Phone Unavailable Care Team Providers Care Manager Infusion Name Role Phone JENNIFER PELAEZ CP Unavailable Allergies, Adverse Reactions, Alerts Substance [...] Problem History of thyroid cancer Z85.850 Active Assessment Papanicolaou smear Z12.4 Active Problem Skin tags, multiple acquired L91.8 Active Assessment History of thyroid cancer Z85.850 Active Assessment Skin tags, multiple acquired L91.8 Active Problem Stress incontinence in female N39.3 Active Problem Dysfunction of eustachian tube H69.80 Active Problem Pain in joint, ankle and foot M25.579 Active Problem Migraine without aura and without status migrainosus, not intractable G43.009 Active Problem Myalgia M79.1 Active Assessment Morbid obesity, unspecified obesity type E66.01 Active Assessment Pelvic pressure in female N94.89 Active Assessment Vaginal discharge N89.8 Active Assessment Stress incontinence in female N39.3 Active Problem Dysmetabolic syndrome E88.81 Active Problem 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 Problem Lump or mass in breast N63 Active Problem Anxiety disorder, unspecified F41.9 Active Problem Dizziness and giddiness R42 Active Problem Other chronic pain G89.29 Active Medications Medication Code System Code Instructions Start Date End Date Status Dosage Emergen-C Vitamin C [facility] [address] Orally not defined Claritin [facility] 03219088798 10 MG Orally Once a day 1 tablet Oxycodone-Acetaminophen [facility] [address]-09 5-325 MG Orally 4 times a day. July 25, 2014 1 tablet as needed Singulair [facility] 21032688833 10 MG TAKE ONE TABLET BY MOUTH ONCE DAILY Vitamin D3 [facility] [address] 1,000 unit July 26, 2013 5 1 time per day Wall Mat Emerson [facility] [address] Dec 14, 2014 as directed Gabapentin [facility] 77700607433 300 MG TAKE ONE CAPSULE BY MOUTH THREE TIMES DAILY Levothyroxine Sodium [facility] [address]-01 112 MCG Orally Once a day 1 tablet Pseudoephedrine HCl [facility] 85994390489 60 MG Orally every 6 hrs 1 tablet as needed Levothyroxine Sodium [facility] [address]-02 50 MCG Orally Once a day 1 tablet pravastatin [facility] [address]-35 40 mg Feb 26, 2014 1 tablet by Oral route 1 time per day Take at bedtime. Avoid Grapefruit Acidophilus [facility] [address]-17 July 26, 2013 1 Capsule 3 times per day Centrum Silver [facility] [address]-18 July 26, 2013 1 Tablet 1 time per day Flonase [facility] 08382690828 50 MCG/ACT Nasally 2 times a day 1 spray in each nostril MetFORMIN HCl ER [facility] 19411221957 500 MG TAKE ONE TABLET BY MOUTH TWICE DAILY Aspirin [facility] [address]-86 325 mg Dec 24, 2011 take 1 tablet (325 mg) by oral route once daily BusPIRone HCl [facility] 65250022997 15 MG TAKE ONE TABLET BY MOUTH THREE TIMES DAILY Omeprazole [facility] 32572502374 20 MG Orally Once a day 1 capsule Colace [facility] [address]-89 100 mg July 26, 2013 take 1 capsule (100 mg) by oral route once daily Procedures Procedure Coding System Code Date [facility] C[facility] NOBLL Feb 06, 2015 No Charge CPT-4 39896 Feb 06, 2015 URINALYSIS, AUTO, W/O SCOPE CPT-4 71217 Feb 06, 2015 FORMERLY [facility] VISIT ESTABLISHED PATIENT CPT-4 G0467 Feb 06, 2015 SPECIMEN HANDLING CPT-4 68163 Feb 06, 2015 Office Visit, Est Pt., Level 4 CPT-4 18647 Feb 06, 2015 Vital Signs Date/Time: Feb 06, 2015 Temperature 98.6 F Weight 321.4 lbs Height 70 in BMI 46.11 Index Blood Pressure Diastolic 74 mmHg Blood Pressure Systolic 122 mmHg Cardiac Monitoring Heart Rate 84 bpm Results Name Result Date Reference Range Unit Abnormality Flag UA LONG DIP (IN HOUSE) ----WOLF trace [id number] ----NIT negative 20150206 ----SG 1.010 20150206 ----KET negative [id number] ----JONI negative [id number] ----GLU negative 20150206 ----Odor none 20150206 ----pH 7.0 20150206 ----BLO negative [id number] ----URO 0.2 20150206 ----Protein negative [id number] ----Lot # [id number] ----Exp date [id number] ----Clarity clear [id number] ----Color yellow [id number] Summary Purpose eClinicalWorks Submission
--- OUTSIDE RECORDS SUMMARY | 2016-12-17 23:19 | XMS REPORT ---
Author Author WING RAO Organization [employer] Address Unknown Phone Unavailable Care Team Providers Care Therapeutic Riding Instructor Name Role Phone WING RAO CP Unavailable [...]
--- OUTSIDE RECORDS SUMMARY | 2016-12-17 23:19 | XMS REPORT ---
Author Author WING RAO Organization [employer] Address Unknown Phone Unavailable Care Team Providers Care Belt Press Operator Name Role Phone WING RAO CP [...] Start Date End Date Status Dosage Oxycodone-Acetaminophen [facility] [address]-91 5-325 MG Orally 4 times a day. July 25, 2014 1 tablet as needed Results No Known Results Summary Purpose eClinicalWorks Submission
--- OUTSIDE RECORDS SUMMARY | 2016-12-17 23:19 | XMS REPORT ---
Author Author WING RAO Organization [facility] Address [address] [place] [address] Care Team Providers Care Residential Building Inspector Name Role Phone WING RAO Unavailable PROBLEMS Type Condition ICD9-CM Code [id number] Code Onset Dates Condition Status SNOMED Code Problem Obesity, unspecified E66.9 Active 472736038 Problem Pain in joint, ankle and foot M25.579 Active 033672308 Problem Lipoma of unspecified site D17.9 Active 33427954 Problem Stress incontinence in female N39.3 Active 35162523 Problem History of thyroid cancer Z85.850 Active 778927427 Problem Myalgia M79.1 Active 46299957 Problem Dysfunction of eustachian tube H69.80 Active 44255904 Problem Skin tags, multiple acquired L91.8 Active 229381626 Problem Migraine without aura and without status migrainosus, not intractable G43.009 Active 035686087 Problem Lump or mass in breast N63 Active 72259649 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 1 tablet as needed Jan, Active RESULTS No Results PROCEDURES No Known procedures IMMUNIZATIONS No Known Immunizations
--- OUTSIDE RECORDS SUMMARY | 2016-12-17 23:20 | XMS REPORT ---
Author Author WING RAO [facility] Address [address] [place] [address] Care Team Providers Care Shoe Cleaner Name Role Phone WING RAO Unavailable PROBLEMS Type Condition ICD9-CM Code OKP34-RP Code Onset Dates Condition Status SNOMED Code Problem Obesity, unspecified E66.9 Active 068779227 Problem Migraine without aura and without status migrainosus, not intractable G43.009 Active 170924080 Problem Hypothyroidism, unspecified E03.9 Active 709649098 Problem Hypertension, benign I10 Active 29915251 Problem Neuropathy G62.9 Active 925925154 Problem Stress incontinence in female N39.3 Active 35903872 Problem Dysmetabolic syndrome E88.81 Active 049553710 Problem Skin tags, multiple acquired L91.8 Active 427254396 Problem History of thyroid cancer Z85.850 Active 074548687 Problem Lipoma of unspecified site D17.9 Active 08493653 Problem Pain in joint, ankle and foot M25.579 Active 428149960 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
--- OUTSIDE RECORDS SUMMARY | 2016-12-17 23:20 | XMS REPORT ---
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 52800181 Problem Pain in joint, ankle and foot M25.579 Active 594747012 Problem Lipoma of unspecified site D17.9 Active 27100347 Problem Neuropathy G62.9 Active 047801882 Problem Skin tags, multiple acquired L91.8 Active 820063409 Problem Lump or mass in breast N63 Active 92115720 Problem Dysfunction of eustachian tube H69.80 Active 13926458 Problem Stress incontinence in female N39.3 Active 16063637 Problem History of thyroid cancer Z85.850 Active 923339555 Problem Dizziness and giddiness R42 Active 007908527 Problem Myalgia M79.1 Active 27416092 Problem Obesity, unspecified E66.9 Active 915917300 Problem Hypothyroidism, unspecified E03.9 Active 506603112 Problem Other chronic pain G89.29 Active 154057049 Problem Migraine without aura and without status migrainosus, not intractable G43.009 Active 105813586 Problem Anxiety disorder, unspecified F41.9 Active 706915240 Problem Dysmetabolic syndrome E88.81 Active 025190810 ALLERGIES Unknown Allergies SOCIAL HISTORY No smoking Hx information available PLAN OF CARE VITAL SIGNS MEDICATIONS Medication Instructions Dosage Frequency Start Date End Date Duration Status Oxycodone-Acetaminophen 5-325 MG Orally 4 times a day. 1 tablet as needed Mar, 28 days Active RESULTS No Results PROCEDURES No Known procedures IMMUNIZATIONS No Known Immunizations
--- OUTSIDE RECORDS SUMMARY | 2016-12-17 23:20 | XMS REPORT ---
Author Author WING RAO Organization [employer] Address Unknown Phone Unavailable Care Team Providers Care Potato Chip Maker Name Role Phone WING RAO CP Unavailable [...] Start Date End Date Status Dosage Oxycodone-Acetaminophen [facility] [address]-55 5-325 MG Orally 4 times a day. July 25, 2014 1 tablet as needed Results No Known Results Summary Purpose eClinicalWorks Submission
--- OUTSIDE RECORDS SUMMARY | 2016-12-17 23:20 | XMS REPORT ---
Author Author TREVIN VALDEZ [facility] eClinicalWorks Address Unknown Phone Unavailable Care Team Providers Care Furnace Cleaner Name Role Phone TREVIN VALDEZ CP Unavailable Allergies No Known Allergies Problems [...] Problem Acute sinusitis, unspecified 461.9 Active Assessment Osteoarthritis of right knee M17.9 Active Problem Lump or mass in breast 611.72 Active Assessment Acute medial meniscus tear of right knee S83.241A Active Problem Intestinal disaccharidase deficiencies and disaccharide malabsorption 271.3 Active Problem Benign neoplasm of skin, site unspecified 216.9 Active Problem Dizziness and giddiness 780.4 Active Problem Anxiety state, unspecified 300.00 Active Problem Dysmetabolic Syndrome X 277.7 Active Problem Other chronic pain 338.29 Active Medications No Known Medications Procedures Procedure Coding System Code Date Office Visit, Est Pt., Level 2 CPT-4 61906 Jan 03, 2015 FOR[facility] VISIT ESTABLISHED PATIENT CPT-4 G0467 Jan 03, 2015 Vital Signs Date/Time: Jan 03, 2015 Blood Pressure Diastolic 78 mmHg Blood Pressure Systolic 120 mmHg Height 70 in Results No Known Results Summary Purpose eClinicalWorks Submission
--- OUTSIDE RECORDS SUMMARY | 2016-12-17 23:20 | XMS REPORT ---
Author Author WING RAO Organization [employer] Address Unknown Phone Unavailable Care Team Providers Care Report Specialist Name Role Phone WING RAO CP Unavailable [...] Start Date End Date Status Dosage SudoGest [facility] [address]-46 60 MG TAKE ONE TABLET BY MOUTH EVERY 6 HOURS NEEDED. Results No Known Results Summary Purpose eClinicalWorks Submission
--- OUTSIDE RECORDS SUMMARY | 2016-12-17 23:20 | XMS REPORT ---
Author Author WING RAO Organization [employer] Address Unknown Phone Unavailable Care Team Providers Care Wellness Nurse Rn Name Role Phone WING RAO CP Unavailable [...] Instructions Start Date End Date Status Dosage Wall Grab [facility] [address] Dec 14, 2014 as directed Results No Known Results Summary Purpose eClinicalWorks Submission
--- OUTSIDE RECORDS SUMMARY | 2016-12-17 23:21 | XMS REPORT ---
Author Author WING RAO Organization [employer]Clinical[employer] Address Unknown Phone Unavailable Care Team Providers Care Drywall Professional Name Role Phone WING RAO CP [...] Date End Date Status Dosage Pseudoephedrine HCl [facility] 25171225531 60 MG Orally every 6 hrs 1 tablet as needed Results No Known Results Summary Purpose eClinicalWorks Submission
--- OUTSIDE RECORDS SUMMARY | 2016-12-17 23:21 | XMS REPORT ---
Author Author WING RAO Organization [employer] Address Unknown Phone Unavailable Care Team Providers Care Processor Inspector Name Role Phone WING RAO CP Unavailable [...] Date End Date Status Dosage Oxycodone-Acetaminophen [facility] [address]-45 5-325 MG Orally 4 times a day. July 25, 2014 1 tablet as needed Results No Known Results Summary Purpose eClinicalWorks Submission
--- OUTSIDE RECORDS SUMMARY | 2016-12-17 23:21 | XMS REPORT ---
Author Author WING RAO Organization [employer] Address Unknown Phone Unavailable Care Team Providers Care Vacuum Cleaner Repair Person Name Role Phone WING RAO CP Unavailable [...] Start Date End Date Status Dosage Oxycodone-Acetaminophen [facility] [address]-68 5-325 MG Orally 4 times a day. July 25, 2014 1 tablet as needed Results No Known Results Summary Purpose eClinicalWorks Submission
--- OUTSIDE RECORDS SUMMARY | 2016-12-17 23:21 | XMS REPORT ---
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 July 25, 2014 1 tablet as needed Results No Known Results Summary Purpose eClinicalWorks Submission
--- OUTSIDE RECORDS SUMMARY | 2016-12-17 23:21 | XMS REPORT ---
Author Author WING RAO Organization [employer] Address Unknown Phone Unavailable Care Team Providers Care Traffic Control Supervisor Name Role Phone WING RAO CP Unavailable [...]
--- OUTSIDE RECORDS SUMMARY | 2016-12-17 23:21 | XMS REPORT ---
Author Author WING RAO Organization [employer] Address Unknown Phone Unavailable Care Team Providers Care General Medical Practitioner Name Role Phone WING RAO CP Unavailable [...] Instructions Start Date End Date Status Dosage Omeprazole [facility] [address]-09 20 MG Orally Once a day Dec 24, 2014 1 capsule Results No Known Results Summary Purpose eClinicalWorks Submission
--- OUTSIDE RECORDS SUMMARY | 2016-12-17 23:21 | XMS REPORT ---
Author Author WING RAO Organization [employer] Address Unknown Phone Unavailable Care Team Providers Care Metal Drill Press Operator Name Role Phone WING RAO [...] Start Date End Date Status Dosage SudoGest [facility] [address]-45 60 MG TAKE ONE TABLET BY MOUTH EVERY 6 HOURS NEEDED. Results No Known Results Summary Purpose eClinicalWorks Submission
--- OUTSIDE RECORDS SUMMARY | 2016-12-17 23:22 | XMS REPORT ---
Author Author WING RAO Organization e[employer] Address Unknown Phone Unavailable Care Team Providers Care Networking Administrator Name Role Phone WING RAO CP Unavailable [...] Instructions Start Date End Date Status Dosage BusPIRone HCl [facility] 54861613987 15 MG TAKE ONE TABLET BY MOUTH THREE TIMES DAILY Oxycodone-Acetaminophen [facility] [address]-53 5-325 MG Orally 4 times a day. July 25, 2014 1 tablet as needed Results No Known Results Summary Purpose eClinicalWorks Submission
--- OUTSIDE RECORDS SUMMARY | 2016-12-17 23:22 | XMS REPORT ---
Author Author WING RAO Organization [employer] Address Unknown Phone Unavailable Care Team Providers Care Vascular Specialists Name Role Phone WING RAO CP Unavailable [...] Start Date End Date Status Dosage SudoGest [facility] 08444011829 60 MG TAKE ONE TABLET BY MOUTH EVERY 6 HOURS NEEDED. Results No Known Results Summary Purpose eClinicalWorks Submission
--- OUTSIDE RECORDS SUMMARY | 2016-12-17 23:22 | XMS REPORT ---
Author Author WING RAO Organization [employer] Address Unknown Phone Unavailable Care Team Providers Care Brick Wheeler Name Role Phone WING RAO CP Unavailable [...] Start Date End Date Status Dosage Omeprazole [facility] [address]-22 20 MG Orally Once a day Dec 24, 2014 1 capsule Results No Known Results Summary Purpose eClinicalWorks Submission
--- OUTSIDE RECORDS SUMMARY | 2016-12-17 23:23 | XMS REPORT ---
Author Author WING RAO Organization [employer] Address Unknown Phone Unavailable Care Team Providers Care Adult Probation Officer Name Role Phone WING RAO CP Unavailable [...] Start Date End Date Status Dosage Oxycodone-Acetaminophen [facility] [address]-79 5-325 MG Orally 4 times a day. PT MUST ATTEND 11/28 APPT FOR FURTHER REFILLS July 25, 2014 1 tablet as needed Results No Known Results Summary Purpose eClinicalWorks Submission
--- OUTSIDE RECORDS SUMMARY | 2016-12-17 23:23 | XMS REPORT ---
Author Author WING RAO Organization [employer] Address Unknown Phone Unavailable Care Team Providers Care Fashion Illustrator Name Role Phone WING RAO CP Unavailable [...]
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
[2016-12-18] MEDS ORDERED: TETANUS,DIPTH,PERTUSS P/F (BOOSTRIX) 0.5 ML VIAL IM ONE (00:15)
[2016-12-18 00:27] VITALS: BP 155/70
--- NOTE | 2016-12-18 07:15 | Diagnostic Imaging Report ---
PA and lateral views of the chest Indication: Fall Findings: The lungs are clear. The heart size is normal. There is no effusion or pneumothorax The mediastinum and kamaljit appear unremarkable. The deformities along the upper lateral left the ribs are likely related to old fractures. Impression: No acute process. Dictated by: Dictated on workstation # [id number]
--- NOTE | 2016-12-18 07:21 | Diagnostic Imaging Report ---
Two views of the left knee. INDICATION: Fall. FINDINGS: There is a partial knee replacement involving the medial compartment with good position and alignment of the prosthesis. There is no fracture, dislocation or evidence of effusion. There are marginal osteophytes in the lateral and patellofemoral compartments. IMPRESSION: No acute process. Dictated by: Dictated on workstation # [id number]
--- NOTE | 2016-12-18 07:23 | Diagnostic Imaging Report ---
EXAM: 3 views of the left hand and 3 views of the right hand are obtained. INDICATION: Fall. FINDINGS: The left hand demonstrates no fracture, dislocation or radiopaque foreign body. Joint alignment is satisfactory. The right hand demonstrates no fracture, dislocation or radiopaque foreign body. IMPRESSION: No fracture seen. Dictated by: Dictated on workstation # [id number]
--- NOTE | 2016-12-18 07:50 | Diagnostic Imaging Report ---
PROCEDURE: CT head, face, and cervical spine without contrast. TECHNIQUE: Multiple contiguous axial images were obtained through the head, neck, and facial bones without the use of intravenous contrast. Sagittal and coronal reformations through the cervical spine and facial bones were also performed. INDICATION: Injury. Findings: CT head: There is a prominent ossification along the superior mid aspect of the falx cerebri without soft tissue mass. There is no intracranial hemorrhage. The strong-white matter differentiation is preserved. No hydrocephalus. No extra-axial fluid collection is seen. The calvarium appears grossly unremarkable. CT face: The orbital margins and the hernández are intact. The paranasal sinuses are clear with no sinus wall fracture seen. There is mild nasal septal deviation to the right side. The zygomatic arches appear intact. The mastoid air cells and middle ear cavities are clear. The orbits appear symmetric. No soft tissue hematoma identified. CT cervical spine: There is straightening of the lordotic curvature with normal alignment of the posterior spinal line seen. The alignment at the facet joints, the lateral masses of C1 and C2 and at the atlantooccipital joints appear unremarkable. There is no widening of the predental space. The vertebral bodies and the discs have normal heights. No significant posterior osteophytes. At C6/7, there is a small focal ossification along the anterior longitudinal ligament, probably a chronic finding. No fracture seen. IMPRESSION: CT head: No acute process. CT face: No fracture. CT cervical spine: Straightening of the cervical curvature is probably positional or related to muscle spasm. No fracture seen. This reading agrees with the [facility] report. Dictated by: Dictated on workstation # [id number]
== END 2016-12-18 00:30 | disposition home or self-care (01) ==
LOC: EDUNIT# 23:04 → ER 23:07
DX: S80.02XA Contusion of left knee, initial encounter (principal); S60.221A Contusion of right hand, initial encounter; S60.222A Contusion of left hand, initial encounter; S10.91XA Abrasion of unspecified part of neck, initial encounter; S00.81XA Abrasion of other part of head, initial encounter; E78.00 Pure hypercholesterolemia, unspecified; K21.9 Gastro-esophageal reflux disease without esophagitis; E11.9 Type 2 diabetes mellitus without complications; F41.9 Anxiety disorder, unspecified; E03.9 Hypothyroidism, unspecified; I10 Essential (primary) hypertension; Z23 Encounter for immunization; Z79.82 Long term (current) use of aspirin; Z85.850 Personal history of malignant neoplasm of thyroid; Z90.710 Acquired absence of both cervix and uterus; W10.8XXA Fall (on) (from) other stairs and steps, initial encounter
CPT/HCPCS: 70450; 70486; 71020; 72125; 73562; 90471; 90715; 99284

== ENCOUNTER → 2017-03-02 | Outpatient (CLI) | payer MEDICARE, MEDICAID ==
--- NOTE | 2017-03-02 14:18 | Diagnostic Imaging Report ---
INDICATION: Screening. The current study was also evaluated with a Computer Aided Detection (CAD) system. Comparison is made with prior examination from 02/13/16, 01/22/15 and 02/13/14. FINDINGS: There is a nodular density in the subareolar region of the left breast, best seen on the CC projection. There are a few benign-type calcifications. There is no other dominant mass, spiculated lesion or suspicious calcification identified. There is a surgical clip in the medial aspect of the left breast. IMPRESSION: Nodular density in the subareolar region of the left breast. Further evaluation with spot compression views and ultrasound is recommended. ACR BI-RADS Category 0: Incomplete. (Needs additional imaging evaluation). Result letter will be mailed to the patient. Note: At least 10% of breast cancer is not imaged by mammography. Dictated by: Dictated on workstation # [id number]
== END ==
LOC: RAD 10:03
PROVIDERS: ATTEND Internal Medicine Hematology & Oncology
DX: Z12.31 Encounter for screening mammogram for malignant neoplasm of breast (principal)
CPT/HCPCS: 77067

== ENCOUNTER → 2017-03-19 | Outpatient (CLI) | payer MEDICARE, MEDICAID | LOC: RAD 12:14 | PROVIDERS: ATTEND Internal Medicine Hematology & Oncology | DX: R92.8 Other abnormal and inconclusive findings on diagnostic imaging of breast (principal) | CPT/HCPCS: 76642 ==

== ENCOUNTER 2017-03-31 11:37 | Outpatient (RCR) | payer MEDICARE, MEDICAID ==
[2017-02-15 10:53] LABS: BASOPHILS # (AUTO) 0.1 10^3/uL (0.0-0.1); BASOPHILS % (AUTO) 1 % (0-10); EOSINOPHILS # (AUTO) 0.3 10^3/uL (0.0-0.3); EOSINOPHILS % (AUTO) 3 % (0-10); HEMATOCRIT 39 % (35-52); HEMOGLOBIN 12.9 G/DL (11.5-16.0); LYMPHOCYTES # (AUTO) 1.5 X 10^3 (1.0-4.0); LYMPHOCYTES % (AUTO) 17 % (12-44); MEAN CORPUSCULAR HEMOGLOBIN 29 PG (25-34); MEAN CORPUSCULAR HGB CONC 33 G/DL (32-36); MEAN CORPUSCULAR VOLUME 86 FL (80-99); MEAN PLATELET VOLUME 9.7 FL (7.4-10.4); MONOCYTES # (AUTO) 0.9 X 10^3 (0.0-1.0); MONOCYTES % (AUTO) 9 % (0-12); NEUTROPHILS # (AUTO) 6.5 X 10^3 (1.8-7.8); NEUTROPHILS % (AUTO) 70 % (42-75); PLATELET COUNT 340 10^3/uL (130-400); RED BLOOD COUNT 4.51 10^6/uL (4.35-5.85); RED CELL DISTRIBUTION WIDTH 13.9 % (10.0-14.5); WHITE BLOOD COUNT 9.2 10^3/uL (4.3-11.0)
[2017-02-15 11:21] LABS: ALANINE AMINOTRANSFERASE 31 U/L (0-55); ALBUMIN 4.1 GM/DL (3.2-4.5); ALKALINE PHOSPHATASE 103 U/L (40-136); BILIRUBIN,TOTAL 0.4 MG/DL (0.1-1.0); BUN/CREATININE RATIO 16; CALCIUM 9.3 MG/DL (8.5-10.1); CARBON DIOXIDE 29 MMOL/L (21-32); CHLORIDE 98 MMOL/L (98-107); CREATININE SERUM 0.75 MG/DL (0.60-1.30); GFR ESTIMATED > 60; GLUCOSE 108 MG/DL (70-105); SODIUM 135 MMOL/L (135-145); TOTAL PROTEIN 7.6 GM/DL (6.4-8.2)
== END 2017-04-27 | disposition home or self-care (01) ==
LOC: ONC 11:37
PROVIDERS: ATTEND Internal Medicine Hematology & Oncology
DX: E03.9 Hypothyroidism, unspecified (principal); Z79.899 Other long term (current) drug therapy
CPT/HCPCS: 36415; 80053; 84432; 84443; 85025; 99213

== ENCOUNTER → 2017-12-16 | Outpatient (CLI) | payer MEDICARE, MEDICAID | END | disposition home or self-care (01) | LOC: PREOP 11-19 05:32 | PROVIDERS: ATTEND Surgery | DX: Z01.818 Encounter for other preprocedural examination (principal) ==

== ENCOUNTER 2018-02-23 14:08 | Outpatient (RCR) | payer MEDICARE, MEDICAID ==
[2018-02-23 14:18] LABS: BASOPHILS # (AUTO) 0.1 10^3/uL (0.0-0.1); BASOPHILS % (AUTO) 1 % (0-10); EOSINOPHILS # (AUTO) 0.4 10^3/uL (0.0-0.3); EOSINOPHILS % (AUTO) 5 % (0-10); HEMATOCRIT 37 % (35-52); HEMOGLOBIN 12.6 G/DL (11.5-16.0); LYMPHOCYTES # (AUTO) 2.3 X 10^3 (1.0-4.0); LYMPHOCYTES % (AUTO) 25 % (12-44); MEAN CORPUSCULAR HEMOGLOBIN 29 PG (25-34); MEAN CORPUSCULAR HGB CONC 34 G/DL (32-36); MEAN CORPUSCULAR VOLUME 85 FL (80-99); MEAN PLATELET VOLUME 9.4 FL (7.4-10.4); MONOCYTES # (AUTO) 0.9 X 10^3 (0.0-1.0); MONOCYTES % (AUTO) 10 % (0-12); NEUTROPHILS # (AUTO) 5.4 X 10^3 (1.8-7.8); NEUTROPHILS % (AUTO) 60 % (42-75); PLATELET COUNT 353 10^3/uL (130-400); RED CELL DISTRIBUTION WIDTH 14.4 % (10.0-14.5)
[2018-02-23 14:34] LABS: ALANINE AMINOTRANSFERASE 28 U/L (0-55); ALBUMIN 4.1 GM/DL (3.2-4.5); ALKALINE PHOSPHATASE 109 U/L (40-136); BILIRUBIN,TOTAL 0.2 MG/DL (0.1-1.0); BUN/CREATININE RATIO 21; CALCIUM 8.9 MG/DL (8.5-10.1); CARBON DIOXIDE 26 MMOL/L (21-32); CHLORIDE 103 MMOL/L (98-107); CREATININE SERUM 0.81 MG/DL (0.60-1.30); GFR ESTIMATED > 60; GLUCOSE 117 MG/DL (70-105); POTASSIUM 3.9 MMOL/L (3.6-5.0); SODIUM 140 MMOL/L (135-145); TOTAL PROTEIN 7.2 GM/DL (6.4-8.2)
== END 2018-05-24 | disposition home or self-care (01) ==
LOC: ONC 14:08
PROVIDERS: ATTEND Internal Medicine Hematology & Oncology
DX: C73 Malignant neoplasm of thyroid gland (principal); E89.0 Postprocedural hypothyroidism; Z79.899 Other long term (current) drug therapy
CPT/HCPCS: 36415; 80053; 84432; 84443; 85025; 86800

== ENCOUNTER → 2018-02-23 | Outpatient (CLI) | payer MEDICARE, MEDICAID ==
--- NOTE | 2018-02-23 15:55 | Diagnostic Imaging Report ---
INDICATION: Left arm injury, pain. COMPARISON: None. FINDINGS: Two views of the left humerus demonstrate no fracture or dislocation. Articular surfaces are age appropriate. No osseous lesion. IMPRESSION: No fracture or dislocation. Dictated by: Dictated on workstation # [id number]
== END ==
LOC: RAD 14:57
PROVIDERS: ATTEND Nurse Practitioner Adult Health
DX: S49.92XA Unspecified injury of left shoulder and upper arm, initial encounter (principal)
CPT/HCPCS: 73060; 99213

== ENCOUNTER 2018-08-18 11:48 | Outpatient (RCR) | payer MEDICARE, MEDICAID | END 2018-11-16 | disposition home or self-care (01) | LOC: ONC 11:48 | PROVIDERS: ATTEND Internal Medicine Hematology & Oncology | DX: C73 Malignant neoplasm of thyroid gland (principal); E89.0 Postprocedural hypothyroidism; Z79.899 Other long term (current) drug therapy | CPT/HCPCS: 36415; 84443 ==

== ENCOUNTER → 2019-02-10 | Outpatient (CLI) | payer MEDICARE, MEDICAID ==
--- NOTE | 2019-02-10 15:18 | Diagnostic Imaging Report ---
INDICATION: History of thyroid cancer. Bilateral anterior neck masses. TECHNIQUE: Multiple real time strong scale sonographic images were obtained of the soft tissue neck. CORRELATION STUDY: None. FINDINGS: There are multiple oval peripherally hypoechoic centrally echogenic foci compatible with lymph nodes. On the right, largest 18 x 16 x 8 mm additional one 11 x 11 x 5 mm. On the left, the largest 15 x 11 x 9 mm additional one 14 x 8 x 6 cm and the 3rd 11 x 8 x 5 mm. IMPRESSION: Mildly prominent bilateral cervical lymph nodes, nonspecific ST etiology and/or significance. Dictated by: Dictated on workstation # [id number]
== END ==
LOC: RAD 13:54
PROVIDERS: ATTEND Nurse Practitioner Community Health
DX: R59.9 Enlarged lymph nodes, unspecified (principal); Z85.850 Personal history of malignant neoplasm of thyroid
CPT/HCPCS: 76536

== ENCOUNTER 2019-02-14 10:18 | Outpatient (RCR) | payer MEDICARE, MEDICAID ==
[2019-02-07 11:51] LABS: BASOPHILS # (AUTO) 0.1 10^3/uL (0.0-0.1); BASOPHILS % (AUTO) 1 % (0-10); EOSINOPHILS # (AUTO) 0.3 10^3/uL (0.0-0.3); EOSINOPHILS % (AUTO) 4 % (0-10); HEMATOCRIT 39 % (35-52); HEMOGLOBIN 12.9 G/DL (11.5-16.0); LYMPHOCYTES # (AUTO) 1.7 X 10^3 (1.0-4.0); LYMPHOCYTES % (AUTO) 21 % (12-44); MEAN CORPUSCULAR HEMOGLOBIN 28 PG (25-34); MEAN CORPUSCULAR HGB CONC 33 G/DL (32-36); MEAN CORPUSCULAR VOLUME 86 FL (80-99); MONOCYTES # (AUTO) 0.9 X 10^3 (0.0-1.0); MONOCYTES % (AUTO) 11 % (0-12); NEUTROPHILS # (AUTO) 5.3 X 10^3 (1.8-7.8); NEUTROPHILS % (AUTO) 64 % (42-75); PLATELET COUNT 361 10^3/uL (130-400); RED CELL DISTRIBUTION WIDTH 14.5 % (10.0-14.5); WHITE BLOOD COUNT 8.4 10^3/uL (4.3-11.0)
[2019-02-07 12:08] LABS: ALANINE AMINOTRANSFERASE 16 U/L (0-55); ALBUMIN 4.2 GM/DL (3.2-4.5); ALKALINE PHOSPHATASE 116 U/L (40-136); BILIRUBIN,TOTAL 0.4 MG/DL (0.1-1.0); BUN/CREATININE RATIO 18; CALCIUM 9.3 MG/DL (8.5-10.1); CARBON DIOXIDE 26 MMOL/L (21-32); CHLORIDE 101 MMOL/L (98-107); CREATININE SERUM 0.73 MG/DL (0.60-1.30); GFR ESTIMATED > 60; GLUCOSE 109 MG/DL (70-105); POTASSIUM 3.7 MMOL/L (3.6-5.0); SODIUM 139 MMOL/L (135-145); TOTAL PROTEIN 7.2 GM/DL (6.4-8.2)
== END 2019-02-15 | disposition home or self-care (01) ==
LOC: ONC 10:18
PROVIDERS: ATTEND Internal Medicine Hematology & Oncology
DX: C73 Malignant neoplasm of thyroid gland (principal); E89.0 Postprocedural hypothyroidism; Z79.899 Other long term (current) drug therapy
CPT/HCPCS: 36415; 80053; 84432; 84443; 85025; 86800; 99213

== ENCOUNTER → 2019-03-22 | Outpatient (CLI) | payer MEDICARE, MEDICAID ==
--- NOTE | 2019-03-22 14:07 | Diagnostic Imaging Report ---
INDICATION: Routine screening. COMPARISON: 03/21/2018 and 03/02/2017. TECHNIQUE: 2D and 3D bilateral screening mammography was performed with CAD. FINDINGS: Both breasts remain heterogeneously dense, limiting the sensitivity of mammography. The parenchymal pattern is stable. A biopsy clip in the left breast is again noted. No dominant mass or malignant appearing microcalcifications are seen. The axillae are unremarkable. IMPRESSION: No mammographic features suspicious for malignancy are identified. ACR BI-RADS Category 2: Benign findings. Result letter will be mailed to the patient. Note: At least 10% of breast cancer is not imaged by mammography. Dictated by: Dictated on workstation # [id number]
== END ==
LOC: RAD 11:00
PROVIDERS: ATTEND Internal Medicine Hematology & Oncology
DX: Z12.31 Encounter for screening mammogram for malignant neoplasm of breast (principal); Z98.890 Other specified postprocedural states
CPT/HCPCS: 77067

== ENCOUNTER 2019-03-29 17:24 | Emergency (ER) | payer MEDICARE, MEDICAID ==
[~2019-03-29] VITALS: Ht 175 cm; Wt 132.9 kg
[2019-03-29 18:00] VITALS: BP_SYST 116; BP_SYST 124; BP_SYST 99; BP_DIAS 68; BP_DIAS 69; BP_DIAS 71
[2019-03-29] MEDS ORDERED: NS IV 1000 ML 1,000 ML IV SCH ×2 (18:00→19:00)
[2019-03-29 18:03] LABS: BASOPHILS # (AUTO) 0.1 10^3/uL (0.0-0.1); BASOPHILS % (AUTO) 1 % (0-10); EOSINOPHILS # (AUTO) 0.4 10^3/uL (0.0-0.3); EOSINOPHILS % (AUTO) 4 % (0-10); HEMATOCRIT 43 % (35-52); HEMOGLOBIN 14.8 G/DL (11.5-16.0); LYMPHOCYTES # (AUTO) 2.2 X 10^3 (1.0-4.0); LYMPHOCYTES % (AUTO) 24 % (12-44); MEAN CORPUSCULAR HEMOGLOBIN 28 PG (25-34); MEAN CORPUSCULAR HGB CONC 34 G/DL (32-36); MEAN CORPUSCULAR VOLUME 83 FL (80-99); MEAN PLATELET VOLUME 10.3 FL (7.4-10.4); MONOCYTES % (AUTO) 11 % (0-12); NEUTROPHILS # (AUTO) 5.5 X 10^3 (1.8-7.8); NEUTROPHILS % (AUTO) 61 % (42-75); PLATELET COUNT 390 10^3/uL (130-400); RED CELL DISTRIBUTION WIDTH 14.4 % (10.0-14.5); WHITE BLOOD COUNT 9.1 10^3/uL (4.3-11.0)
[2019-03-29 18:10] LABS: PROTHROMBIN TIME PATIENT 13.7 SEC (12.2-14.7)
[2019-03-29 18:15] LABS: ALANINE AMINOTRANSFERASE 27 U/L (0-55); ALBUMIN 4.8 GM/DL (3.2-4.5); ALKALINE PHOSPHATASE 98 U/L (40-136); BILIRUBIN,TOTAL 0.6 MG/DL (0.1-1.0); BUN/CREATININE RATIO 17; CALCIUM 10.3 MG/DL (8.5-10.1); CARBON DIOXIDE 30 MMOL/L (21-32); CHLORIDE 90 MMOL/L (98-107); GFR ESTIMATED > 60; GLUCOSE 97 MG/DL (70-105); MAGNESIUM 1.9 MG/DL (1.6-2.4); POTASSIUM 3.3 MMOL/L (3.6-5.0); SODIUM 132 MMOL/L (135-145); TOTAL PROTEIN 8.2 GM/DL (6.4-8.2)
[2019-03-29 18:35] LABS: TSH (THYROID ANALYZER) 51.07 UIU/ML (0.35-4.94)
--- NOTE | 2019-03-29 18:51 | Diagnostic Imaging Report ---
CHEST 1 VIEW, AP/PA ONLY INDICATION: Dizziness and chest pain. COMPARISON: 12/17/2016 FINDINGS: Stable asymmetric elevation of the right hemidiaphragm. Visualized aspects of the lungs are clear. Posterior lower lobes are poorly evaluated by portable radiography. No pleural effusion or pneumothorax. Normal heart size and mediastinal contours. IMPRESSION: 1. No acute cardiopulmonary process by portable radiography. Dictated by: Dictated on workstation # [id number]
--- NOTE | 2019-03-29 18:57 | NUR ---
Received report from Sharon Vogt RN at this time to assume care of pt.
[2019-03-29] MEDS ORDERED: KCL 20 MEQ TAB (K-DUR) PO ONE (19:00)
[2019-03-29 19:19] LABS: FREE T4 (FREE THYROXINE) 0.47 NG/DL (0.70-1.48)
--- NOTE | 2019-03-29 20:06 | NUR ---
Pt assisted with ambulation to bathroom at this time. Tolerated well.
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
[2019-03-29 20:43] VITALS: BP 117/61
== END 2019-03-29 20:43 | disposition home or self-care (01) ==
LOC: EDUNIT# 17:24 → ER 17:26
DX: E86.9 Volume depletion, unspecified (principal); K21.9 Gastro-esophageal reflux disease without esophagitis; E03.9 Hypothyroidism, unspecified; F41.9 Anxiety disorder, unspecified; Z85.850 Personal history of malignant neoplasm of thyroid; Z90.710 Acquired absence of both cervix and uterus; Z88.2 Allergy status to sulfonamides; Z88.1 Allergy status to other antibiotic agents; Z88.8 Allergy status to other drugs, medicaments and biological substances; Z88.0 Allergy status to penicillin; Z79.82 Long term (current) use of aspirin; Z79.51 Long term (current) use of inhaled steroids
CPT/HCPCS: 36415; 71045; 80053; 83735; 83874; 84439; 84443; 84484; 85025; 85610; 85730; 93005; 93041

== ENCOUNTER → 2019-03-30 | Outpatient (CLI) | payer MEDICARE, MEDICAID | LOC: CARD 11:38 | PROVIDERS: ATTEND Nurse Practitioner Family | DX: I07.1 Rheumatic tricuspid insufficiency (principal); I10 Essential (primary) hypertension; G47.33 Obstructive sleep apnea (adult) (pediatric) | CPT/HCPCS: 93306 ==

== ENCOUNTER → 2019-04-12 | Outpatient (CLI) | payer MEDICARE, MEDICAID ==
--- NOTE | 2019-04-14 11:33 | Diagnostic Imaging Report ---
EXAMINATION: I-131 whole body bone scan. INDICATION: Papillary thyroid carcinoma. The study was performed following administration of 2.23 mCi of I-131. COMPARISON: There are no prior I-131 whole body scans available for comparison. FINDINGS: The nuclear medicine thyroid scan and uptake with I-123 performed on 01/05/2008 failed to show any sign of an abnormality. Reportedly the patient now has a diagnosis of papillary carcinoma. There is uptake in the region of the nasal cavity and in the stomach and bladder. These areas of uptake are felt to be physiologic in nature. There is no other abnormal uptake to suggest metastatic disease. IMPRESSION: There is no evidence for metastatic disease. Dictated by: Dictated on workstation # [id number]
== END ==
LOC: CARD 09:58
PROVIDERS: ATTEND Radiology Radiation Oncology
DX: C73 Malignant neoplasm of thyroid gland (principal)
CPT/HCPCS: 78018

== ENCOUNTER → 2019-04-26 | Outpatient (CLI) | payer MEDICARE, MEDICAID ==
[~2019-04-26] MED LIST changes: +CATHETER FLUSH 10 ML SYR IV PRN; +HOLD METFORMIN - RECEIVED CONTRAST 20 ML VIAL IV SCH; +IOHEXOL 350 MG/ML 100 ML (OMNIPAQUE 350) VIAL IV ONE; +NS 100 ML (IVPB) BAG IV ONE
--- NOTE | 2019-04-26 11:42 | Diagnostic Imaging Report ---
PROCEDURE: CT Neck, Chest Abdomen and Pelvis with contrast, Abdomen and Pelvis without. TECHNIQUE: Multiple contiguous axial images were obtained through the neck, chest, abdomen, and pelvis after the uneventful bolus administration of intravenous contrast. Precontrast acquisitions through the abdomen and pelvis were performed. Sagittal and coronal reformations are then performed. Auto Exposure Controls were utilized during the CT exam to meet ALARA standards for radiation dose reduction. INDICATION: Thyroid carcinoma with anterior neck swelling. COMPARISON: Correlation is made with prior CT neck study from 02/13/2014. CT NECK: Visualized intracranial structures are unremarkable. Posterior nasopharynx, oropharynx and larynx are unremarkable. Thyroid appears to be surgically absent. Submandibular and parotid glands appear to be symmetric bilaterally. There are normal-sized submandibular and jugulodigastric lymph nodes. No definite cervical lymphadenopathy is seen. No recurrent thyroid mass is detected. IMPRESSION: Status post thyroidectomy. No cervical lymphadenopathy or evidence of tumor recurrence is identified. CT CHEST: No axillary lymphadenopathy is detected. No mediastinal or hilar lymphadenopathy is detected. No pericardial or pleural fluid is identified. No pulmonary infiltrates, nodules or masses are seen. IMPRESSION: Unremarkable CT of the chest. CT ABDOMEN AND PELVIS: No discrete liver mass is detected. Gallbladder is unremarkable. No biliary ductal dilatation is seen. Pancreas and spleen are unremarkable. No adrenal mass is detected. Kidneys are unremarkable. Aorta is non-aneurysmal. No central retroperitoneal or mesenteric lymphadenopathy is seen. Small and large bowel loops are normal caliber. There is no obstruction. There is no free fluid or fluid collection identified. Bladder is unremarkable. Uterus appears to be surgically absent. No pelvic lymphadenopathy is seen. Lumbar spondylosis is noted. IMPRESSION: Essentially unremarkable CT of the abdomen and pelvis. No lymphadenopathy or evidence of metastatic disease is identified. Dictated by: Dictated on workstation # [id number]
== END ==
LOC: RAD 09:28
PROVIDERS: ATTEND Internal Medicine Hematology & Oncology
DX: C73 Malignant neoplasm of thyroid gland (principal); R59.0 Localized enlarged lymph nodes; Z90.89 Acquired absence of other organs
CPT/HCPCS: 70491; 71260; 74178

== ENCOUNTER 2019-05-25 14:37 | Outpatient (RCR) | payer MEDICARE, MEDICAID ==
[~2019-05-25 14:37] MED LIST changes: +ASCO500T17 PO; -ASCO500T6 PO; -CATHETER FLUSH 10 ML SYR IV PRN; -HOLD METFORMIN - RECEIVED CONTRAST 20 ML VIAL IV SCH; -IOHEXOL 350 MG/ML 100 ML (OMNIPAQUE 350) VIAL IV ONE; -NS 100 ML (IVPB) BAG IV ONE
== END 2019-07-11 | disposition home or self-care (01) ==
LOC: ONC 14:37
PROVIDERS: ATTEND Internal Medicine Hematology & Oncology
DX: C73 Malignant neoplasm of thyroid gland (principal); E89.0 Postprocedural hypothyroidism; Z79.899 Other long term (current) drug therapy
CPT/HCPCS: 84432; 84443; 86800; 99213

== ENCOUNTER 2019-09-08 12:51 | Outpatient (RCR) | payer MEDICARE, MEDICAID | END 2019-10-23 | disposition home or self-care (01) | LOC: ONC 12:51 | PROVIDERS: ATTEND Internal Medicine Hematology & Oncology | DX: C73 Malignant neoplasm of thyroid gland (principal); E03.9 Hypothyroidism, unspecified | CPT/HCPCS: 84443 ==

== ENCOUNTER 2020-01-22 11:43 | Outpatient (RCR) | payer MEDICARE, MEDICAID | END 2020-03-04 09:35 | disposition home or self-care (01) | LOC: ONC 11:43 | PROVIDERS: ATTEND Internal Medicine Hematology & Oncology | DX: C73 Malignant neoplasm of thyroid gland (principal); E89.0 Postprocedural hypothyroidism | CPT/HCPCS: 84443 ==

== ENCOUNTER 2020-04-24 11:10 | Outpatient (RCR) | payer MEDICARE, MEDICAID ==
[2020-04-22 13:02] LABS: BASOPHILS # (AUTO) 0.1 10^3/uL (0.0-0.1); BASOPHILS % (AUTO) 1 % (0-10); EOSINOPHILS # (AUTO) 0.3 10^3/uL (0.0-0.3); EOSINOPHILS % (AUTO) 4 % (0-10); HEMATOCRIT 37 % (35-52); HEMOGLOBIN 12.1 g/dL (11.5-16.0); LYMPHOCYTES # (AUTO) 1.8 10^3/uL (1.0-4.0); LYMPHOCYTES % (AUTO) 21 % (12-44); MEAN CORPUSCULAR HEMOGLOBIN 28 pg (25-34); MEAN CORPUSCULAR HGB CONC 33 g/dL (32-36); MEAN CORPUSCULAR VOLUME 87 fL (80-99); MEAN PLATELET VOLUME 9.8 fL (9.0-12.2); MONOCYTES # (AUTO) 0.9 10^3/uL (0.0-1.0); MONOCYTES % (AUTO) 10 % (0-12); NEUTROPHILS # (AUTO) 5.7 10^3/uL (1.8-7.8); NEUTROPHILS % (AUTO) 65 % (42-75); PLATELET COUNT 314 10^3/uL (130-400); WHITE BLOOD COUNT 8.9 10^3/uL (4.3-11.0)
[2020-04-22 13:24] LABS: ALANINE AMINOTRANSFERASE 17 U/L (0-55); ALBUMIN 3.9 GM/DL (3.2-4.5); ALKALINE PHOSPHATASE 96 U/L (40-136); BILIRUBIN,TOTAL 0.3 MG/DL (0.1-1.0); BUN/CREATININE RATIO 18; CALCIUM 9.3 MG/DL (8.5-10.1); CARBON DIOXIDE 30 MMOL/L (21-32); CHLORIDE 101 MMOL/L (98-107); GFR ESTIMATED > 60; GLUCOSE 101 MG/DL (70-105); POTASSIUM 3.8 MMOL/L (3.6-5.0); SODIUM 138 MMOL/L (135-145)
== END 2020-06-04 | disposition home or self-care (01) ==
LOC: ONC 11:10
PROVIDERS: ATTEND Internal Medicine Hematology & Oncology
DX: E89.0 Postprocedural hypothyroidism (principal)
CPT/HCPCS: 80053; 84432; 84443; 85025; 86800

== ENCOUNTER 2020-08-14 15:20 | Outpatient (RCR) | payer MEDICARE, MEDICAID | END 2020-09-17 | disposition home or self-care (01) | LOC: ONC 15:20 | PROVIDERS: ATTEND Internal Medicine Hematology & Oncology | DX: E89.0 Postprocedural hypothyroidism (principal); C73 Malignant neoplasm of thyroid gland | CPT/HCPCS: 84443 ==

== ENCOUNTER → 2020-09-17 | Outpatient (CLI) | payer MEDICARE, MEDICAID ==
--- NOTE | 2020-09-17 13:12 | Diagnostic Imaging Report ---
INDICATION: Palpable abnormality of the neck. History of thyroidectomy owing to thyroid cancer. There is no mass or fluid collection within the thyroid bed. An elongated reniform node in the left neck measured 2.7 x 3.2 x 0.8 cm. Additional small lymph node on the left more superiorly is a 1.2 cm long axis. No fluid collection. IMPRESSION: There is some left-sided cervical lymph nodes the largest elongated 3.2 cm. No fluid collection. Dictated by: Dictated on workstation # [id number]
== END ==
LOC: RAD 11:00
PROVIDERS: ATTEND Physician Assistant
DX: R59.0 Localized enlarged lymph nodes (principal); Z90.89 Acquired absence of other organs
CPT/HCPCS: 76536

== ENCOUNTER → 2020-09-17 | Outpatient (CLI) | payer MEDICARE, MEDICAID ==
--- NOTE | 2020-09-17 14:23 | Diagnostic Imaging Report ---
INDICATION: 2-D and 3-D digital screening with CAD. COMPARED: 03/2019, 03/2018 and 03/2017 FINDINGS: Scattered fibroglandular densities in the breasts are present. Posterior to the nipple at the junction of the mid to posterior 3rd depth of the left breast seen only in the CC views is a subcentimeter area of a somewhat irregular asymmetric parenchymal density. No corresponding opacity in the MLO views found, is likely a superimposition however spot compression views and a 90 degree lateral medial view recommended to confirm its resolution of the density persist or is otherwise indicated at the time of diagnostic views targeted left breast ultrasound may be of benefit. The right mammogram is stable and negative, there are no microcalcifications. IMPRESSION: A single view asymmetric density posterior to the nipple in the CC view, diagnostic views and possible ultrasound recommended given the change. BI-RADS Category 0. Left diagnostic mammography and possible ultrasound recommended as discussed. ACR BI-RADS Category 0: Incomplete. (Needs additional imaging evaluation). Result letter will be mailed to the patient. Note: At least 10% of breast cancer is not imaged by mammography. Dictated by: Dictated on workstation # [id number]
== END ==
LOC: RAD 11:02
PROVIDERS: ATTEND Internal Medicine Hematology & Oncology
DX: Z12.31 Encounter for screening mammogram for malignant neoplasm of breast (principal)
CPT/HCPCS: 77063; 77067

== ENCOUNTER → 2020-09-23 | Outpatient (CLI) | payer MEDICARE, MEDICAID ==
--- NOTE | 2020-09-23 14:52 | Diagnostic Imaging Report ---
INDICATION: Left breast density. Patient presents for additional views. COMPARISON: Correlation is made with the prior screening mammogram from 09/17/2020. TECHNIQUE: Unilateral left 2D and 3D diagnostic mammography was performed. This included spot compression CC and rolled CC as well as spot compression ML and routine mediolateral views. FINDINGS: The additional views show only mild density in the central left breast. This could represent fibroglandular tissue. No discrete mass is identified. No suspicious microcalcifications are seen. IMPRESSION: Additional views show some mild residual density in the central left breast which may represent fibroglandular tissue. Even so, sonographic interrogation is recommended and will be performed today. ACR BI-RADS Category 0: Incomplete. (Needs additional imaging evaluation). Result letter will be mailed to the patient. Note: At least 10% of breast cancer is not imaged by mammography. Dictated by: Dictated on workstation # [id number]
--- NOTE | 2020-09-23 16:31 | Diagnostic Imaging Report ---
INDICATION: Left breast density. COMPARISON: Correlation is made with the diagnostic mammogram from earlier this same day. FINDINGS: Sonographic interrogation of the inferior left breast was performed. No solid or cystic mass is identified. The density noted mammographically most likely represents superimposed tissue. IMPRESSION: No sonographic abnormality is identified. The patient may return to routine annual screening mammography. ACR BI-RADS Category 1: Negative. Dictated by: Dictated on workstation # [id number]
== END ==
LOC: RAD 12:40
PROVIDERS: ATTEND Nurse Practitioner Adult Health
DX: R92.2 Inconclusive mammogram (principal)
CPT/HCPCS: 76642

== ENCOUNTER → 2020-11-26 | Outpatient (CLI) | payer MEDICARE, MEDICAID ==
--- NOTE | 2020-11-26 14:23 | Diagnostic Imaging Report ---
INDICATION: Cervical lymphadenopathy with history of thyroid carcinoma. TECHNIQUE: The serum blood glucose level at the time of injection was 150 mg/dL. The patient was administered 13.1 mCi of F-18 FDG intravenously and PET imaging was performed from the top of the skull to the mid thighs. A noncontrast CT was also performed for attenuation correction and anatomic correlation. COMPARISON: No prior PET/CT study is available for comparison. FINDINGS: There is symmetric activity throughout the brain. No definite hypermetabolic cervical lymphadenopathy is identified. No mediastinal or hilar hypermetabolism is seen. No pulmonary parenchymal hypermetabolism is identified. Physiologic activity throughout the GI and tracts of the abdomen and pelvis is noted. No suspicious hypermetabolism is seen. IMPRESSION: Unremarkable PET/CT study. No suspicious regions of hypermetabolism are identified. Dictated by: Dictated on workstation # [id number]
== END ==
LOC: RAD 09:45
PROVIDERS: ATTEND Nurse Practitioner Adult Health
DX: R59.0 Localized enlarged lymph nodes (principal); Z85.850 Personal history of malignant neoplasm of thyroid

== ENCOUNTER 2020-11-28 12:41 | Outpatient (RCR) | payer MEDICARE, MEDICAID ==
[2020-10-07 14:20] LABS: BASOPHILS # (AUTO) 0.1 10^3/uL (0.0-0.1); BASOPHILS % (AUTO) 1 % (0-10); EOSINOPHILS # (AUTO) 0.5 10^3/uL (0.0-0.3); EOSINOPHILS % (AUTO) 4 % (0-10); HEMATOCRIT 39 % (35-52); HEMOGLOBIN 12.6 g/dL (11.5-16.0); LYMPHOCYTES # (AUTO) 1.9 10^3/uL (1.0-4.0); LYMPHOCYTES % (AUTO) 18 % (12-44); MEAN CORPUSCULAR HEMOGLOBIN 29 pg (25-34); MEAN CORPUSCULAR HGB CONC 33 g/dL (32-36); MEAN CORPUSCULAR VOLUME 89 fL (80-99); MEAN PLATELET VOLUME 9.5 fL (9.0-12.2); MONOCYTES # (AUTO) 0.8 10^3/uL (0.0-1.0); MONOCYTES % (AUTO) 8 % (0-12); NEUTROPHILS % (AUTO) 68 % (42-75); PLATELET COUNT 325 10^3/uL (130-400); WHITE BLOOD COUNT 10.2 10^3/uL (4.3-11.0)
[2020-10-07 14:37] LABS: ALBUMIN 3.8 GM/DL (3.2-4.5); BILIRUBIN,TOTAL 0.3 MG/DL (0.1-1.0); CALCIUM 9.4 MG/DL (8.5-10.1); CREATININE SERUM 0.81 MG/DL (0.60-1.30); POTASSIUM 4.1 MMOL/L (3.6-5.0); TOTAL PROTEIN 7.2 GM/DL (6.4-8.2)
== END 2020-12-31 | disposition home or self-care (01) ==
LOC: ONC 12:41
PROVIDERS: ATTEND Internal Medicine Hematology & Oncology
DX: C73 Malignant neoplasm of thyroid gland (principal); E89.0 Postprocedural hypothyroidism
CPT/HCPCS: 80053; 83615; 84432; 84443; 85025; 86800; 99213

== ENCOUNTER 2021-05-08 05:35 | Outpatient (CLI) | payer MEDICARE, MEDICAID ==
[~2021-05-08] VITALS: Ht 176 cm; Wt 136.4 kg
[2021-05-09] MEDS ORDERED: ASPI-808 PO (13:03)
[2021-05-09] MEDS ORDERED: LIDO700A45 TP (13:03)
[2021-05-09] MEDS ORDERED: PSEU-182 PO (13:03)
[2021-05-09] MEDS ORDERED: NAPR-429 PO (13:03)
[2021-05-09] MEDS ORDERED: BUSP30TA2 PO (13:03)
[2021-05-09] MEDS ORDERED: MAG-95 PO (13:03)
[2021-05-09] MEDS ORDERED: CBD OIL (13:03)
[2021-05-09] MEDS ORDERED: TUME1CAP PO (13:03)
[2021-05-09] MEDS ORDERED: LISI1TAB48 PO (13:03)
[2021-05-09] MEDS ORDERED: LEVO150C4 PO (13:03)
[2021-05-09] MEDS ORDERED: GLUC1CAP37 PO (13:03)
[2021-05-09] MEDS ORDERED: GABA300S2 PO (13:03)
== END 2021-05-09 13:23 | disposition home or self-care (01) ==
LOC: PREOP 05:35
PROVIDERS: ATTEND Surgery
DX: Z01.818 Encounter for other preprocedural examination (principal)

== ENCOUNTER 2022-01-02 17:12 | Observation (INO) | payer MEDICARE, MEDICAID ==
[~2022-01-02] VITALS: Ht 177 cm; Wt 135.3 kg
[~2022-01-02 17:12] MED LIST changes: +ASPI-808 PO; +BUSP30TA2 PO; +CBD OIL; +GABA300S2 PO; +GLUC1CAP37 PO; +LEVO150C4 PO; +LIDO700A45 TP; +LISI1TAB48 PO; +MAG-95 PO; +NAPR-429 PO; +OMEP20TA56 PO; -OMEP20TA7 PO; +PSEU-182 PO; +TUME1CAP PO
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
[2022-01-02 17:56] LABS: BASOPHILS # (AUTO) 0.1 10^3/uL (0.0-0.1); BASOPHILS % (AUTO) 1 % (0-10); EOSINOPHILS # (AUTO) 0.4 10^3/uL (0.0-0.3); EOSINOPHILS % (AUTO) 4 % (0-10); HEMATOCRIT 40 % (35-52); HEMOGLOBIN 13.1 g/dL (11.5-16.0); LYMPHOCYTES # (AUTO) 2.1 10^3/uL (1.0-4.0); LYMPHOCYTES % (AUTO) 20 % (12-44); MEAN CORPUSCULAR HEMOGLOBIN 28 pg (25-34); MEAN CORPUSCULAR HGB CONC 33 g/dL (32-36); MEAN CORPUSCULAR VOLUME 86 fL (80-99); MEAN PLATELET VOLUME 9.6 fL (9.0-12.2); MONOCYTES # (AUTO) 0.9 10^3/uL (0.0-1.0); MONOCYTES % (AUTO) 8 % (0-12); NEUTROPHILS # (AUTO) 6.8 10^3/uL (1.8-7.8); NEUTROPHILS % (AUTO) 66 % (42-75); PLATELET COUNT 358 10^3/uL (130-400); WHITE BLOOD COUNT 10.3 10^3/uL (4.3-11.0)
[2022-01-02 17:59] LABS: ALBUMIN 4.1 GM/DL (3.2-4.5); POTASSIUM 3.5 MMOL/L (3.6-5.0)
[2022-01-02 18:00] LABS: CALCIUM 9.5 MG/DL (8.5-10.1)
[2022-01-02] MEDS ORDERED: LIDOCAINE 2% VISCOUS 15 ML UDC PO ONE (18:00)
[2022-01-02] MEDS ORDERED: ANTACID SUSP 30 ML UDC (MYLANTA) PO ONE (18:00)
[2022-01-02] MEDS ORDERED: SUCRALFATE 1 GM (CARAFATE) TAB PO ONE (18:00)
[2022-01-02 18:02] LABS: INR 1.1 (0.8-1.4); PROTHROMBIN TIME PATIENT 14.2 SEC (12.2-14.7); TOTAL PROTEIN 7.4 GM/DL (6.4-8.2)
[2022-01-02 18:04] LABS: BILIRUBIN,TOTAL 0.3 MG/DL (0.1-1.0)
[2022-01-02 18:05] LABS: CREATININE SERUM 0.9 MG/DL (0.60-1.30)
[2022-01-02 18:08] LABS: MAGNESIUM 1.9 MG/DL (1.6-2.4)
--- NOTE | 2022-01-02 18:16 | Diagnostic Imaging Report ---
INDICATION: Chest pain. EXAMINATION: AP view of the chest was obtained. COMPARISON: Study of 03/29/2019. FINDINGS: There is continued elevation of the right hemidiaphragm. Old left rib fractures are noted. Lungs appear clear. Heart size and pulmonary vascularity are within normal limits. IMPRESSION: No acute abnormality or adverse change. Dictated by: Dictated on workstation # [id number]
[2022-01-02 18:32] LABS: AMYLASE 61 U/L (25-125)
[2022-01-02 18:33] LABS: LIPASE 30 U/L (8-78)
[2022-01-02] MEDS ORDERED: IOHEXOL 350 MG/ML 100 ML (OMNIPAQUE 350) VIAL IV ONE (18:45)
[2022-01-02] MEDS ORDERED: HOLD METFORMIN - RECEIVED CONTRAST 20 ML VIAL IV SCH (18:45)
[2022-01-02] MEDS ORDERED: NS 100 ML (IVPB) BAG IV ONE (18:45)
--- NOTE | 2022-01-02 19:27 | Diagnostic Imaging Report ---
INDICATION: CP, ABD PAIN CTA chest, abdomen and pelvis Thin axial sections through the chest, abdomen and pelvis are obtained following intravenous contrast bolus. Multiplanar MIP images were reconstructed and reviewed. All CT scans use one or more of the following dose optimizing techniques: automated exposure control, MA and/or KvP adjustment based on patient size and exam type or iterative reconstruction. CTA chest: There is no previous study for comparison. 3-D MIP images were also produced. There is good opacification of pulmonary arteries without intraluminal filling defect. Thoracic aorta is of normal caliber. There is no evidence of pathologic adenopathy in the chest. No significant pleural or pericardial fluid is identified. There is no evidence of consolidation. IMPRESSION: No CTA evidence of pulmonary embolism or other acute abnormality in the chest. CT abdomen and pelvis: There is mild low-density in the liver indicating steatosis. Gallbladder is contracted. No focal hepatic, gallbladder, pancreatic, adrenal gland or splenic abnormality is seen. There is perfusion and function involving both kidneys without hydronephrosis. There is a nonspecific 1.5 cm low-density region in the upper pole of the left kidney which could represent a cyst. There is no free fluid in the abdomen or pelvis. No localized inflammation or focal fluid collection is seen. There is rather advanced L5-S1 degenerative disc disease with grade 1 anterolisthesis of L5 on S1. IMPRESSION: Hepatic steatosis without other definite acute abnormality identified. Left renal ultrasound would be useful to confirm cystic nature of 1.5 cm low-density structure. Dictated by: Dictated on workstation # [id number]
[2022-01-02] MEDS ORDERED: ASPIRIN 81 MG CHEW (CHILDREN'S ASA) PO ONE (19:45)
[2022-01-02] MEDS: NITROGLYCERIN 0.4 MG SL TABS BTL 25'S SL PRN ×3 (19:51→20:10)
[2022-01-02] MEDS ORDERED: morphine INJ 10 MG/ML 1ML (SYR OR VIAL) IVP STA (21:24)
[2022-01-02] MEDS ORDERED: ENOXAPARIN 80 MG/0.8 ML (LOVENOX) SYR SC ONE ×2 (21:30)
[2022-01-02 22:32] VITALS: BP 150/87
[2022-01-02] MEDS ORDERED: ONDANSETRON 4 MG/2 ML (SDV) Z0FRAN IV PRN (22:45)
[2022-01-02] MEDS ORDERED: ONDANSETRON 4 MG/2 ML (SDV) Z0FRAN IVP PRN (23:00)
[2022-01-02] MEDS ORDERED: morphine INJ 4 MG/ML 1 ML (VIAL/SYRINGE) IV PRN (23:00)
[2022-01-02] MEDS ORDERED: NITROGLYCERIN 0.4 MG SL TABS BTL 25'S SL PRN (23:00)
[2022-01-03 05:14] LABS: TRIGLYCERIDES 132 MG/DL (<150); VLDL CHOLESTEROL 26 MG/DL (5-40)
[2022-01-03 05:19] LABS: CHOLESTEROL 162 MG/DL (< 200)
[2022-01-03 05:20] LABS: HDL CHOLESTEROL 42 MG/DL (40-60)
[2022-01-03] MEDS: CATHETER FLUSH 10 ML SYR IVP SCH ×3 (06:00→22:00)
[2022-01-03] MEDS ORDERED: FLU QUADRIvalent (6 months+) 60 mcg/0.5 ml 2022-23 (Fluzone) IM ONE (07:15)
[2022-01-03 08:00] VITALS: BP 126/89
[2022-01-03] MEDS ORDERED: PANTOPRAZOLE 40 MG (PROTONIX) VIAL IV SCH (09:00)
--- NOTE | 2022-01-03 09:33 | Consultation-Cardiology ---
HPI-Cardiology Cardiology Consultation Date of Consultation 01/03/22 Date of Admission Time Seen by Provider: 09:29 Indication: Chest pain HPI 61 years old lady with history of fibromyalgia, peptic ulcer disease. Thyroid cancer. Morbid obesity. Started to have severe chest pain across her chest with burning sensation and nausea. Came into the emergency room, had some relieved with nitroglycerin but did not fully resolve until she received morphine. On my evaluation this morning she was still feeling uncomfortable, felt nauseous after examination and palpation of her epigastric area. Home Medications & Allergies Allergies: Coded Allergies: Sulfa (Sulfonamide Antibiotics) (Verified Allergy, Severe, TETANY, 01/15) diclofenac (Unverified Allergy, Severe, Anaphylaxis, 05/09/21) clavulanic acid (Unverified Allergy, Unknown, head fullness, 04/11/16) erythromycin base (Unverified Allergy, Unknown, projectile vomitin, 04/11/16) meloxicam (Unverified Allergy, Unknown, memory loss, 04/11/16) pravastatin (Unverified Allergy, Unknown, Rash, 05/09/21) metformin (Verified Adverse Reaction, Severe, 03/29/19) hallucinations Penicillins (Verified Adverse Reaction, Mild, N/V, HAS RECEIVED ANCEF W/O PROBLEM, 04/11/16) amoxicillin (Verified Adverse Reaction, Mild, N/V, 04/11/16) tetracycline (Verified Adverse Reaction, Mild, N/V, 04/11/16) Home Medication List Reviewed: Yes UDF-Iexfin-Zhvxbi Hx Patient Social History Smoking Status: Never a Smoker 2nd Hand Smoke Exposure: No Recent Hopitalizations: No Have you traveled recently?: No Alcohol Use?: No Immunizations Up To Date Tetanus Booster (TDap): Unknown Date of Pneumonia Vaccine: Mar 08, 2012 Date of Influenza Vaccine: Nov 29, 2020 Past Medical History Discussed below Family Medical History Significant Family History: No Pertinent Family Hx Review of Systems-General Review of Systems Constitutional: see HPI, malaise EENTM: see HPI, no symptoms reported Respiratory: see HPI; No cough, No dyspnea on exertion, No hemoptysis, No orthopnea, No phlegm, No short of breath, No stridor, No wheezing, No other Cardiovascular: see HPI, chest pain; No edema, No Hx of Intervention, No palpitations, No syncope, No vascular heart diseas, No other Gastrointestinal: no symptoms reported, see HPI, heartburn, nausea Genitourinary: no symptoms reported, see HPI Musculoskeletal: no symptoms reported, see HPI Skin: no symptoms reported, see HPI Psychiatric/Neurological: See HPI, Headache (mild 4-5 days) All Other Systems Reviewed Negative Unless Noted: Yes Reviewed Test Results Reviewed Test Results Lab Laboratory Tests Test 01/02/22 17:20 01/02/22 20:10 01/02/22 22:56 01/03/22 04:30 Range/Units White Blood Count 10.3 4.3-11.0 10^3/uL Red Blood Count 4.61 3.80-5.11 10^6/uL Hemoglobin 13.1 11.5-16.0 g/dL Hematocrit 40 35-52 % Mean Corpuscular Volume 86 80-99 fL Mean Corpuscular Hemoglobin 28 25-34 pg Mean Corpuscular Hemoglobin Concent 33 32-36 g/dL Red Cell Distribution Width 13.5 10.0-14.5 % Platelet Count 358 130-400 10^3/uL Mean Platelet Volume 9.6 9.0-12.2 fL Immature Granulocyte % (Auto) 1 % Neutrophils (%) (Auto) 66 42-75 % Lymphocytes (%) (Auto) 20 12-44 % Monocytes (%) (Auto) 8 0-12 % Eosinophils (%) (Auto) 4 0-10 % Basophils (%) (Auto) 1 0-10 % Neutrophils # (Auto) 6.8 1.8-7.8 10^3/uL Lymphocytes # (Auto) 2.1 1.0-4.0 10^3/uL Monocytes # (Auto) 0.9 0.0-1.0 10^3/uL Eosinophils # (Auto) 0.4 H 0.0-0.3 10^3/uL Basophils # (Auto) 0.1 0.0-0.1 10^3/uL Immature Granulocyte # (Auto) 0.1 0.0-0.1 10^3/uL Prothrombin Time 14.2 12.2-14.7 SEC INR Comment 1.1 0.8-1.4 Activated Partial Thromboplast Time 36 H 24-35 SEC Sodium Level 139 135-145 MMOL/L Potassium Level 3.5 L 3.6-5.0 MMOL/L Chloride Level 99 98-107 MMOL/L Carbon Dioxide Level 26 21-32 MMOL/L Anion Gap 14 5-14 MMOL/L Blood Urea Nitrogen 17 7-18 MG/DL Creatinine 0.90 0.60-1.30 MG/DL Estimat Glomerular Filtration Rate 73 BUN/Creatinine Ratio 19 Glucose Level 111 H 70-105 MG/DL Calcium Level 9.5 8.5-10.1 MG/DL Corrected Calcium 9.4 8.5-10.1 MG/DL Magnesium Level 1.9 1.6-2.4 MG/DL Total Bilirubin 0.3 0.1-1.0 MG/DL Aspartate Amino Transf (AST/SGOT) 19 5-34 U/L Alanine Aminotransferase (ALT/SGPT) 22 0-55 U/L Alkaline Phosphatase 111 40-136 U/L Myoglobin 48.7 10.0-92.0 NG/ML Troponin I < 0.028 < 0.028 < 0.028 < 0.028 <0.028 NG/ML Total Protein 7.4 6.4-8.2 GM/DL Albumin 4.1 3.2-4.5 GM/DL Amylase Level 61 25-125 U/L Lipase 30 8-78 U/L Triglycerides Level 132 <150 MG/DL Cholesterol Level 162 < 200 MG/DL LDL Cholesterol Direct 102 1-129 MG/DL VLDL Cholesterol 26 5-40 MG/DL HDL Cholesterol 42 40-60 MG/DL Physical Exam Physical Exam Vital Signs Vital Signs - First Documented 01/02/22 01/02/22 17:17 23:16 Temp 36.3 Pulse 101 Resp 16 B/P (MAP) 141/80 (100) Pulse Ox 96 O2 Delivery Room Air O2 Flow Rate 2.00 Capillary Refill : Less Than 3 Seconds Height, Weight, BMI Height: 5'9.00" Weight: 330lbs. 8.0oz. [id number]; 43.15 BMI Method:Stated General Appearance: No Apparent Distress, WD/WN, Other (pleasant and conversational) Eyes: Bilateral Eye Normal Inspection, Bilateral Eye PERRL, Bilateral Eye EOMI HEENT: PERRL/EOMI Neck: Normal Inspection Respiratory: Lungs Clear, Normal Breath Sounds, No Accessory Muscle Use, No Respiratory Distress Cardiovascular: Regular Rate, Rhythm, Normal Peripheral Pulses Gastrointestinal: Non Tender, Soft Back: Normal Inspection, No CVA Tenderness, No Vertebral Tenderness Extremity: Normal Capillary Refill, Normal Inspection, Normal Range of Motion, No Pedal Edema Neurologic/Psychiatric: Alert, Oriented x3, No Motor/Sensory Deficits, Normal Mood/Affect Skin: Normal Color, Warm/Dry Lymphatic: No Adenopathy A/P-Cardiology Admission Diagnosis Chest pain Hypertension Hypothyroidism Peptic ulcer disease Assessment/Plan Chest pain nonspecific etiology, atypical in presentation. Reporting some relief with nitroglycerin but no full resolution of her pain Epigastric discomfort and nausea. Has been having heartburn for the past few weeks that did not resolve with famotidine. Cardiac enzymes and EKG did not show any acute abnormality Discussed the possibility of doing a stress test as an outpatient Recommended evaluating endoscopy and discussed the management plan with Dr. Antoine and Dr. Calhoun Hypertension, restart home medications and monitor blood pressure Hypothyroidism, history of thyroid cancer, history of thyroidectomy, radiation treatment. Maintained on thyroid supplement Obesity, BMI 43. History of peptic ulcer disease. History of fibromyalgia Clinical Quality Measures AMI/AHF: ASA po Prior to arrival: VARGAS Lockhart MD Jan 03, 2022 09:33
[2022-01-03] MEDS ORDERED: ENOXAPARIN 150 MG/ML (LOVENOX) SYR SQ ONE (10:00)
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
--- NOTE | 2022-01-03 10:39 | History & Physical-Hospitalist ---
History of Present Illness HPI/Chief Complaint Mrs. Alcaraz is a 61-year-old white female who reports for the past 3 to 4 days she been having heartburn type symptoms there was some radiation through to the back but she pointed to her precordial area. There was no other radiation of the pain no exacerbation with physical activity. She reported a past history of peptic ulcer disease. She had been taking naproxen 500 mg twice daily for fibromyalgia related pain and also a full-strength aspirin daily ever since she had a stroke what sounds like cryptogenic over 20 years ago with no neurologic symptoms since. She has no known history of coronary disease and had a heart catheterization 10 years ago reportedly normal. She ate at [employer] around 1:00 PM the day of her admission and by 2 was having severe chest pain radiating through to her back with nausea. On presentation to the emergency room troponin level was negative and ECG revealed no ischemic change. Several troponin levels through the night have been normal as well. After nitroglycerin she reported a headache but her pain had eased a little bit from a 10 to a 6 and this morning rates her discomfort around a 2 or 3. She denies melena or bright red blood per rectum and has had no bowel habit change. She has had no past history of gallbladder disease there is a family history her daughter is under gone cholecystectomy. Date Seen 01/03/22 Time Seen by a Provider: 10:36 Attending Physician [place] PCP Admitting Physician: Alok Antoine MD Attending Physician: Alok Antoine MD Referring Physician Date of Admission Jan 02, 2022 at 21:15 Home Medications & Allergies Home Medications Reviewed patient Home Medication Reconciliation performed by pharmacy medication reconciliations bike technician and/or nursing. Patients Allergies have been reviewed. Allergies Allergies Coded Allergies Sulfa (Sulfonamide Antibiotics) (Verified Allergy, Severe, TETANY, 04/11/16) diclofenac (Unverified Allergy, Severe, Anaphylaxis, 05/09/21) clavulanic acid (Unverified Allergy, Unknown, head fullness, 04/11/16) erythromycin base (Unverified Allergy, Unknown, projectile vomitin, 04/11/16) meloxicam (Unverified Allergy, Unknown, memory loss, 04/11/16) pravastatin (Unverified Allergy, Unknown, Rash, 05/09/21) metformin (Verified Adverse Reaction, Severe, 03/29/19) hallucinations Penicillins (Verified Adverse Reaction, Mild, N/V, HAS RECEIVED ANCEF W/O PROBLEM, 04/11/16) amoxicillin (Verified Adverse Reaction, Mild, N/V, 04/11/16) tetracycline (Verified Adverse Reaction, Mild, N/V, 04/11/16) Past Vvaxpcf-Ipqkqv-Mwlqno Hx Patient Social History Tobacco Use?: No Smoking Status: Never a Smoker Smokeless Tobacco Frequency: Never a User Use of E-Cig and/or Vaping dev: No Substance use?: No Alcohol Use?: No Pt feels they are or have been: No Immunizations Up To Date Date of Influenza Vaccine: Nov 29, 2020 First/Initial COVID19 Vaccinat: APRIL 2020 Second COVID19 Vaccination Zia: UNKNOWN Date of Pneumonia Vaccine: Mar 08, 2012 Seasonal Allergies Seasonal Allergies: No Current Status Advance Directives: No Communicates: Verbally Primary Language: Somali Preferred Spoken Language: Occitan Sensory deficits: Vision impairment Implanted or Applied Medical D: CPAP, Orthopedic hardware Past Medical History Surgeries: Hysterectomy, Orthopedic, Thyroidectomy Sleep Apnea High Cholesterol 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 SUNG--NORMAL, NO INTERVENTION Review of Systems Constitutional: see HPI Physical Exam Physical Exam Vital Signs Vital Signs - First Documented 01/02/22 01/02/22 17:17 23:16 Temp 36.3 Pulse 101 Resp 16 B/P (MAP) 141/80 (100) Pulse Ox 96 O2 Delivery Room Air O2 Flow Rate 2.00 Capillary Refill : Less Than 3 Seconds Height, Weight, BMI Height: 5'9.00" Weight: 330lbs. 8.0oz. 149.417788tk; 43.15 BMI Method:Stated General Appearance: No Apparent Distress, Obese Respiratory: Chest Non Tender, Lungs Clear, Normal Breath Sounds, No Accessory Muscle Use, No Respiratory Distress Cardiovascular: Regular Rate, Rhythm, No Edema, No Gallop, No JVD, No Murmur, Normal Peripheral Pulses Gastrointestinal: Normal Bowel Sounds, No Organomegaly, Soft, Other (Epigastric pain to palpation with guarding no rebound.) Extremity: Normal Capillary Refill, Normal Inspection, Normal Range of Motion, Non Tender, No Calf Tenderness, No Pedal Edema Results Results/Procedures Labs Laboratory Tests 01/02/22 17:20 Patient resulted labs reviewed. Assessment/Plan Admission Diagnosis A/P 1. Noncardiac chest pain peptic ulcer disease versus acute cholecystitis risk factors for both. Dr. Calhoun has been consulted and is taking the patient to EGD later today. 2. History of hypertension. 3. Reported past history of cryptogenic stroke. Admission Status: Observation Reason for Inpatient Admission: See admission diagnosis Clinical Quality Measures AMI/AHF: ASA po Prior to arrival: ALOK Linares MD Jan 03, 2022 10:39
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
[2022-01-03] MEDS ORDERED: LACTATED RINGERS 1,000 ML IV STA (10:59)
[2022-01-03] MEDS ORDERED: HURRICAINE EXT TUBE (BENZOCAINE) XX PRN (11:00)
[2022-01-03] MEDS ORDERED: MIDAZOLAM 2 MG/2 ML (VERSED) VIAL ONE (11:39)
[2022-01-03] MEDS ORDERED: proPOfol 200 MG/20 ML (DIPRIVAN) VIAL IV ONE (11:39)
[2022-01-03 11:56] VITALS: BP 130/61
[2022-01-03 12:00] VITALS: BP 148/82
[2022-01-03 12:01] VITALS: BP 124/61
--- NOTE | 2022-01-03 12:07 | Anesthesia-General Post-Op ---
MAC Patient Condition Mental Status/LOC: Same as Preop Cardiovascular: Satisfactory Nausea/Vomiting: Absent Respiratory: Satisfactory Pain: Controlled Complications: Absent Post Op Complications Complications None Follow Up Care/Instructions Patient Instructions None needed. Anesthesiology Discharge Order Discharge Order Patient is doing well, no complaints, stable vital signs, no apparent adverse anesthesia problems. No complications reported per nursing. BREANNE HARMAN CRNA Jan 03, 2022 12:07
[2022-01-03] MEDS: ASPIRIN E.C. 81 MG (ECOTRIN) TAB PO SCH (12:39)
[2022-01-03] MEDS ORDERED: BUSP30TA2 PO (13:44)
[2022-01-03] MEDS ORDERED: ACETAMINOPHEN 500 MG TAB (TYLENOL) PO NR (14:00)
[2022-01-03] MEDS: LEVOTHYROXINE 75 MCG (LEVOTHROID) TABLET PO SCH (15:01)
[2022-01-03] MEDS: SUCRALFATE 1 GM (CARAFATE) TAB PO SCH ×2 (15:03→20:45)
--- NOTE | 2022-01-03 15:19 | Operative Report ---
Allergies and Home Medications Allergies Coded Allergies: Sulfa (Sulfonamide Antibiotics) (Verified Allergy, Severe, TETANY, 04/11/16) diclofenac (Unverified Allergy, Severe, Anaphylaxis, 05/09/21) clavulanic acid (Unverified Allergy, Unknown, head fullness, 04/11/16) erythromycin base (Unverified Allergy, Unknown, projectile vomitin, 04/11/16) meloxicam (Unverified Allergy, Unknown, memory loss, 04/11/16) pravastatin (Unverified Allergy, Unknown, Rash, 05/09/21) metformin (Verified Adverse Reaction, Severe, 03/29/19) hallucinations Penicillins (Verified Adverse Reaction, Mild, N/V, HAS RECEIVED ANCEF W/O PROBLEM, 04/11/16) amoxicillin (Verified Adverse Reaction, Mild, N/V, 04/11/16) tetracycline (Verified Adverse Reaction, Mild, N/V, 04/11/16) Patient Home Medication List Home Medication List Reviewed: Yes Aspirin (Aspirin) 325 Mg Tablet, 325 MG PO, (Reported) Entered as Reported by: EMMIE DELVALLE on 05/09/21 1303 Last Action: Reviewed Buspirone HCl (Buspirone HCl) 30 Mg Tablet, 30 MG PO BID, (Reported) Entered as Reported by: BARBARA MEDINA on 01/03/22 1344 Last Action: New Order Calcium Carbonate/Vitamin D3 (Calcium 500 + D Tablet) 1 Each Tablet, 1 EACH PO TID, (Reported) Entered as Reported by: BITA REEVES on 09/13/14 1039 Last Action: Reviewed Docusate Sodium (Docusate Sodium) 100 Mg Tablet, 100 MG PO DAILY, (Reported) Entered as Reported by: BITA REEVES on 09/13/14 1039 Last Action: Reviewed Fluticasone Propionate (Flonase Allergy Relief) 9.9 Ml [place].susp, 1 SPRAY NS DAILY, (Reported) Entered as Reported by: DARREL ALEJO on 07/08/15 1304 Last Action: Reviewed Glucosa Jansen 2Kcl/Chondroitin Jansen (Glucosamine & Chondroitin Cap) 1 Each Capsule, 1 EACH PO DAILY, (Reported) Entered as Reported by: EMMIE DELVALLE on 05/09/21 1303 Last Action: Reviewed L.acidoph & Paracasei,B.lactis (Probiotic) 1 Each Capsule, 2 EACH PO DAILY, (Reported) Entered as Reported by: DARREL ALEJO on 07/08/151303 Last Action: Reviewed Levothyroxine Sodium (Levothyroxine) 150 Mcg Capsule, 150 MCG PO DAILY, (Reported) Entered as Reported by: EMMIE DELVALLE on 05/09/211302 Last Action: Converted Lidocaine (Lidocaine 5% Patch) 1 Each Adh..patch, 1 EACH TP Q12H PRN for Neuropathic pain, (Reported) Entered as Reported by: EMMIE DELVALLE on 05/09/211302 Last Action: Reviewed Lisinopril/Hydrochlorothiazide (Lisinopril-Hctz 20-25 mg Tab) 1 Each Tablet, 1 EACH PO DAILY, (Reported) Entered as Reported by: EMMIE DELVALLE on 05/09/211302 Last Action: Reviewed Multivits W-Fe,Other Min/Lut (Centrum Silver Ultra Women Tab) 1 Each Tablet, 1 EACH PO DAILY, (Reported) Entered as Reported by: SARINA CHO on 03/06/14 0946 Last Action: Reviewed Naproxen Sodium (Naproxen Sodium ER) 500 Mg Tbmp.24hr, 500 MG PO BID, (Reported) Entered as Reported by: EMMIE DELVALLE on 05/09/211302 Last Action: Reviewed Pseudoephedrine HCl (Sudafed) 30 Mg Tablet, 60 MG PO BID, (Reported) Entered as Reported by: EMMIE DELVALLE on 05/09/211302 Last Action: Reviewed Tumeric/Ging/[place]/Oreg/Capryl (Candicidal Capsule) 1 Each Capsule, 1 EACH PO DAILY, (Reported) Entered as Reported by: EMMIE DELVALLE on 05/09/211302 Last Action: Reviewed [Cbd Oil] , PRN, (Reported) Entered as Reported by: EMMIE DELVALLE on 05/09/211302 Last Action: Reviewed Discontinued Medications Buspirone HCl (Buspirone HCl) 30 Mg Tablet, 15 MG PO BID, (Reported) Discontinued Reason: No Longer Taking Entered as Reported by: EMMIE DELVALLE on 05/09/211302 Last Action: Discontinued Gabapentin (Gabapentin) 300 Mg/6 Ml Solution, 300 MG PO BID, (Reported) Discontinued Reason: No Longer Taking Entered as Reported by: EMMIE DELVALLE on 05/09/21 1303 Last Action: Discontinued Ginkgo Biloba Extract (Ginkgo Biloba) 120 Mg Capsule, 120 MG PO BID, (Reported) Discontinued Reason: No Longer Taking Entered as Reported by: DARREL ALEJO on 07/08/15 1304 Last Action: Discontinued Mag Hydrox/Al Hydrox/Simeth (Comfort Gel Suspension) 355 Ml Oral.susp, 355 ML PO BID, (Reported) Discontinued Reason: No Longer Taking Entered as Reported by: EMMIE DELVALLE on 05/09/21 130 Last Action: Discontinued MARGIE SCHAEFER Jan 03, 2022 15:19
[2022-01-03] MEDS: PANTOPRAZOLE 40 MG (PROTONIX) TAB PO SCH (15:30)
[2022-01-03 16:00] VITALS: BP 139/78
[2022-01-03 19:57] VITALS: BP 137/79
[2022-01-03] MEDS ORDERED: ACETAMINOPHEN 500 MG TAB (TYLENOL) PO PRN ×2 (20:15→21:15)
[2022-01-03] MEDS ORDERED: ACETAMINOPHEN 500 MG TAB (TYLENOL) ONE (20:43)
--- NOTE | 2022-01-03 23:19 | OPERATIVE REPORT ---
DATE OF SERVICE: 01/03/2022 PREOPERATIVE DIAGNOSIS: Atypical chest pain, epigastric pain, GERD. POSTOPERATIVE DIAGNOSIS: Antral gastritis. PROCEDURE: EGD with biopsy. SURGEON: Dada Calhoun DO. ANESTHESIA: Per REFINING SUPERVISOR. ESTIMATED BLOOD LOSS: None. COMPLICATIONS: None. INDICATIONS: The patient is a 61-year-old female who understands the risks and benefits who has been having atypical chest pain, GERD symptoms and epigastric pain, felt this is more related to her reflux. It has been requested that EGD be performed for further evaluation. She understands the risks and benefits of procedure and wishes to proceed. Consent was signed on chart. DESCRIPTION OF PROCEDURE: The patient was taken to the endoscopy suite, placed in left lateral recumbent position. Timeout was performed. Scope was inserted in the mouth, down the esophagus, stomach and into the duodenum without difficulty. No polyps, masses or ulcerations in the duodenum. Scope was retracted back and the stomach was further insufflated. Antral gastritis present. Biopsy of the antrum was obtained. No polyps, masses or ulcerations present. Scope was retroflexed noting no other pathology. Scope was returned to its normal position, and slowly withdrawn to the distal esophagus, which had no polyps, masses, ulcerations. Biopsy of the GE junction was obtained. The scope was slowly retracted back until completely removed. The patient tolerated the procedure well with no complications. She was taken to recovery room in stable condition. RECOMMENDATIONS: The patient started on Protonix and Carafate. Await biopsy results. Further recommendations pending. Job ID: [id number] DocumentID: [id number] Dictated Date: 01/03/2022 14:52:55 Commanding Officer Garage Date: 01/03/2022 23:17:00 Dictated By: DADA CALHOUN DO
[2022-01-04] VITALS: BP 145/83
[2022-01-04] MEDS: CATHETER FLUSH 10 ML SYR IVP SCH (05:58)
[2022-01-04] MEDS: LEVOTHYROXINE 75 MCG (LEVOTHROID) TABLET PO SCH (06:09)
[2022-01-04] MEDS: SUCRALFATE 1 GM (CARAFATE) TAB PO SCH ×2 (06:09→12:07)
--- NOTE | 2022-01-04 06:42 | Progress Note - Surgery ---
GIUSEPPE RSOS 01/04/22 0642: Subjective Date Seen by a Provider: Jan 04, 2022 Time Seen by a Provider: 10:00 Subjective/Events-last exam Patient is laying in bed comfortably this morning Has now new pain at this time, still rates her chest pain/epigastric pain as a 2/10 She is currently NPO Bowel and bladder are moving adequately No other complaints today Labs reviewed Objective Exam Vital Signs Date Time Temp Pulse Resp B/P (MAP) Pulse Ox O2 Delivery O2 Flow Rate FiO2 01/04/22 04:12 36.3 01/04/22 01:00 73 01/04/22 00:33 36.2 Nasal Cannula 4.00 01/04/22 00:00 79 20 145/83 (103) 95 Room Air 01/03/22 19:57 37.0 74 12 137/79 (98) 94 Room Air 01/03/22 19:40 Room Air 01/03/22 19:00 84 01/03/22 16:00 36.6 82 16 139/78 (98) 96 01/03/22 12:55 74 01/03/22 12:01 81 16 96 OxyMask 4.00 01/03/22 12:00 36.7 78 18 148/82 (104) 94 Nasal Cannula 4.00 01/03/22 11:56 82 16 97 OxyMask 10.00 01/03/22 11:37 Nasal Cannula 4.00 01/03/22 08:00 36.6 77 14 126/89 (101) 97 Nasal Cannula 4.00 01/03/22 08:00 Nasal Cannula 4.00 01/03/22 07:00 69 I & O 01/04/22 07:00 Intake Total 2230 ml Balance 2230 ml Capillary Refill : Less Than 3 Seconds General Appearance: No Apparent Distress, Obese HEENT: PERRL/EOMI; No Scleral Icterus (L), No Scleral Icterus (R) Neck: Normal Inspection, Non Tender Respiratory: Chest Non Tender, Lungs Clear, Normal Breath Sounds, No Accessory Muscle Use, No Respiratory Distress Cardiovascular: Regular Rate, Rhythm, No Edema, No Gallop, No JVD, No Murmur, Normal Peripheral Pulses Peripheral Pulses: 2+ Radial Pulses (R), 2+ Radial Pulses (L) Gastrointestinal: soft, other (Epigastrium tender to palpation- with some minor radiation to back) Extremity: Normal Capillary Refill, Normal Inspection, Normal Range of Motion, Non Tender, No Calf Tenderness, No Pedal Edema Neurologic/Psychiatric: Alert, Oriented x3, No Motor/Sensory Deficits, Normal Mood/Affect Skin: Normal Color, Warm/Dry Lymphatic: No Adenopathy Assessment/Plan Assessment/Plan Assessment/Plan Antrum gastritis-post EGD Atypical chest/epigastric pain GERD History of cardiac catherterization Continue supportive care Zofran as needed NPO Continue Protonix and carafate Discuss with cardiology Clinical Quality Measures AMI/AHF: ASA po Prior to arrival: DADA Woods DO 01/04/22 1322: Subjective Subjective/Events-last exam Feeling better today. Pain now about 2/10 and improving. Only really hurts if touch epigastric area but still minimal. Not having any nausea or emesis. Denies fever sweats chills shortness of breath or chest pain. Wanting to go home. Objective Exam General Appearance: No Apparent Distress, Obese HEENT: PERRL/EOMI, Normal ENT Inspection Neck: Normal Inspection, Non Tender Respiratory: Chest Non Tender, No Accessory Muscle Use, No Respiratory Distress Cardiovascular: Regular Rate, Rhythm, No JVD Gastrointestinal: soft, other (Epigastrium tender to palpation minimal now) Extremity: Non Tender, No Calf Tenderness Neurologic/Psychiatric: Alert, Oriented x3, No Motor/Sensory Deficits, Normal Mood/Affect Skin: Normal Color, Warm/Dry Lymphatic: No Adenopathy Assessment/Plan Assessment/Plan Assessment/Plan Antrum gastritis-post EGD Atypical chest/epigastric pain GERD History of cardiac catherterization Continue supportive care Zofran as needed Continue Protonix and carafate Will have follow up as outpatient with me. Supervisory-Addendum Brief Verification & Attestation Participated in pt care: history, MDM, physical Personally performed: exam, history, MDM, supervision of care Care discussed with: Medical Student Procedures: n/a Results interpretation: Verified all documentation Verification and Attestation of Medical Student E/M Service A medical student performed and documented this service in my presence. I reviewed and verified all information documented by the medical student and made modifications to such information, when appropriate. I personally performed the physical exam and medical decision making. Dada Calhoun, Jan 04, 2022,13:22 GIUSEPPE ROSS 6, 2022 06:42 DADA CALHOUN DO Jan 04, 2022 13:22
[2022-01-04 08:00] VITALS: BP 146/82
[2022-01-04] MEDS: PANTOPRAZOLE 40 MG (PROTONIX) TAB PO SCH (08:21)
[2022-01-04] MEDS: ASPIRIN E.C. 81 MG (ECOTRIN) TAB PO SCH (08:21)
[2022-01-04] MEDS ORDERED: PANT40TA52 PO (09:27)
[2022-01-04] MEDS ORDERED: SUCR1TAB PO (09:27)
[2022-01-04] MEDS ORDERED: ASPI-1238 PO (09:27)
--- NOTE | 2022-01-04 09:35 | Discharge Summary ---
Diagnosis/Chief Complaint Date of Admission Jan 02, 2022 at 21:15 Date of Discharge Discharge Date: Jan 04, 2022 Admission Diagnosis A/P 1. Noncardiac chest pain peptic ulcer disease versus acute cholecystitis risk factors for both. Dr. Calhoun has been consulted and is taking the patient to EGD later today. 2. History of hypertension. 3. Reported past history of cryptogenic stroke. Primary Care Center/[facility] Discharge Summary Discharge Physical Exam Allergies: Coded Allergies: Sulfa (Sulfonamide Antibiotics) (Verified Allergy, Severe, TETANY, 04/11/16) diclofenac (Unverified Allergy, Severe, Anaphylaxis, 05/09/21) clavulanic acid (Unverified Allergy, Unknown, head fullness, 04/11/16) erythromycin base (Unverified Allergy, Unknown, projectile vomitin, 04/11/16) meloxicam (Unverified Allergy, Unknown, memory loss, 04/11/16) pravastatin (Unverified Allergy, Unknown, Rash, 05/09/21) metformin (Verified Adverse Reaction, Severe, 03/29/19) hallucinations Penicillins (Verified Adverse Reaction, Mild, N/V, HAS RECEIVED ANCEF W/O PROBLEM, 04/11/16) amoxicillin (Verified Adverse Reaction, Mild, N/V, 04/11/16) tetracycline (Verified Adverse Reaction, Mild, N/V, 04/11/16) Vitals & I&Os Vital Signs Date Time Temp Pulse Resp B/P (MAP) Pulse Ox O2 Delivery O2 Flow Rate FiO2 01/04/22 08:00 35.4 81 13 146/82 (103) 90 Room Air 01/04/22 00:33 4.00 General Appearance: No Apparent Distress, Obese Respiratory: Chest Non Tender, Lungs Clear, Normal Breath Sounds, No Accessory Muscle Use, No Respiratory Distress Cardiovascular: Regular Rate, Rhythm, No Edema, No Gallop, No JVD, No Murmur, Normal Peripheral Pulses Gastrointestinal: Normal Bowel Sounds, No Organomegaly, No Pulsatile Mass, Non Tender, Soft Hospital Course Was the Problem List Reviewed?: Yes Labs (last 24 hrs) Patient resulted labs reviewed. Imaging: Reviewed Imaging Report Discussion & Recommendations Discharge Planning: >30 minutes discharge planning The patient presented to the emergency room with severe chest pain radiating through to her back. She had been having heartburn symptoms for the past adolfo ral days went to [facility] and an hour later had severe exacerbation of her pain. She was admitted to the hospital where she ruled out for an acute infarction with negative serial troponin levels and no diagnostic ECG abnormalities. CT scan of the chest and the abdomen revealed hepatic steatosis gallbladder was unremarkable no evidence for pancreatitis and amylase lipase and chemistry panel were normal. Dr. Calhoun performed EGD that revealed some antral gastritis but no evidence for peptic ulcer disease. She was started on pantoprazole she had been taking Pepcid at home she had had a cryptogenic stroke shortly after 24 years ago with no subsequent neurologic symptoms and has been on full-strength aspirin for this reason as well as naproxen 500 twice daily that she reports significant symptomatic relief from her fibromyalgia and does not do well off of it. She reports she does not tolerate Lyrica or gabapentin and does not want to take narcotics. There is a family history for cholecystitis and we did discuss a calculus cholecystitis is I am a little bit suspicious that her EGD findings explain her symptoms especially in light of the fact that there is no evidence for erosive esophagitis. She is being discharged on pantoprazole 40 mg daily and Carafate a gram before meals and at bedtime discussed the importance of taking her thyroid an hour before Carafate in the morning. We are decreasing her aspirin to a baby aspirin daily and as she had no evidence for peptic ulcer disease and has been on the medicine for some time we will continue her Naprosyn due to her report that it does significantly improve her quality of life. She was advised to follow-up [facility] in 1 to 2 weeks and adhere to a low-fat diet. Will need abdominal ultrasound and consideration for HIDA scan with [facility] for recurrent symptoms in the future. Discharge Home Medications: Active Scripts Active Pantoprazole Sodium 40 Mg Tablet.dr 40 Mg PO DAILY 30 Days Aspirin EC (Aspirin) 81 Mg Tablet. 81 Mg PO DAILY 30 Days Sucralfate 1 Gram Tablet 1 Gm PO ACHS 30 Days Reported Buspirone HCl 30 Mg Tablet 30 Mg PO BID [Cbd Oil] PRN Lidocaine 5% Patch (Lidocaine) 1 Each Adh..patch 1 Each TP Q12H PRN MDD 2 2 patches max for 12 hours, then 12 hours patch-free period. Candicidal Capsule (Tumeric/Ging/[place]/Oreg/Capryl) 1 Each Capsule 1 Each PO DAILY Glucosamine & Chondroitin Cap (Glucosa Jansen 2Kcl/Chondroitin Jansen) 1 Each Capsule 1 Each PO DAILY Lisinopril-Hctz 20-25 mg Tab (Lisinopril/Hydrochlorothiazide) 1 Each Tablet 1 Each PO DAILY Levothyroxine (Levothyroxine Sodium) 150 Mcg Capsule 150 Mcg PO DAILY Aspirin 325 Mg Tablet 325 Mg PO Naproxen Sodium ER (Naproxen Sodium) 500 Mg Tbmp.24hr 500 Mg PO BID Sudafed (Pseudoephedrine HCl) 30 Mg Tablet 60 Mg PO BID Probiotic (L.acidoph & Paracasei,B.lactis) 1 Each Capsule 2 Each PO DAILY Flonase Allergy Relief (Fluticasone Propionate) 9.9 Ml [place].susp 1 [place] NS DAILY Docusate Sodium 100 Mg Tablet 100 Mg PO DAILY Calcium 500 + D Tablet (Calcium Carbonate/Vitamin D3) 1 Each Tablet 1 Each PO TID Centrum Silver Ultra Women Tab (Multivits W-Fe,Other Min/Lut) 1 Each Tablet 1 Each PO DAILY Instructions to patient/family Please see electronic discharge instructions given to patient. Clinical Quality Measures AMI/AHF: ASA po Prior to arrival: No Copy Copies To 2: [facility] MICHEL MD Jan 04, 2022 09:35
--- NOTE | 2022-01-04 11:06 | Cardiology Progress Note ---
Subjective Date Seen by Provider: Jan 04, 2022 Time Seen by Provider: 11:05 Subjective/Events-last exam Patient was seen at bedside, laying down comfortably, feeling better Still having mild epigastric tenderness Review of Systems General: No Chills, No Night Sweats, No Fatigue, No Malaise, No Appetite, No Other HEENT: No Head Aches, No Visual Changes, No Eye Pain, No Ear Pain, No Dysphasia, No Sinus Congestion, No Post Nasal Drip, No Sore Throat, No Other Pulmonary: No Dyspnea, No Cough, No Pleuritic Chest Pain, No Other Cardiovascular: No: Chest Pain, Palpitations, Orthopnea, Paroxysmal Noc. Dyspnea, Edema, Lt Headedness, Other Objective-Cardiology Exam Last Set of Vital Signs Vital Signs 01/04/22 01/04/22 00:33 08:00 Temp 35.4 Pulse 81 Resp 13 B/P (MAP) 146/82 (103) Pulse Ox 90 O2 Delivery Room Air O2 Flow Rate 4.00 I&O Intake and Output 01/04/22 00:00 Intake Total 2530 ml Balance 2530 ml Intake Oral 2230 ml IV Total 300 ml # Voids 8 # Bowel Movements 3 General: Alert, Oriented X3, Cooperative HEENT: Atraumatic, PERRLA Neck: Supple, No JVD, No Thyromegaly Lungs: Clear to Auscultation, Normal Air Movement Heart: Regular Rate, Normal S1, Normal S2, No Murmurs Abdomen: Normal Bowel Sounds, Soft, No Tenderness, No Hepatosplenomegaly, No Masses Extremities: No Clubbing, No Cyanosis, No Edema, Normal Pulses, No Tenderness/Swelling Skin: No Rashes, No Breakdown, No Significant Lesion Neuro: Normal Gait, Normal Speech, Strength at 5/5 X4 Ext, Normal Tone, Sensation Intact Psych/Mental Status: Mental Status NL, Mood NL A/P-Cardiology Admission Diagnosis Chest pain Hypertension Hypothyroidism Peptic ulcer disease Assessment/Plan Chest pain nonspecific etiology, atypical in presentation. Reporting some relief with nitroglycerin but no full resolution of her pain Epigastric discomfort and nausea. Has been having heartburn for the past few weeks that did not resolve with famotidine. Cardiac enzymes and EKG did not show any acute abnormality EGD was done by Dr. Calhoun reported antral gastritis. Managed by primary care team Discussed with the patient, she will follow-up with Dr. Hill in the next 1-2 weeks and may require a stress test as an outpatient Hypertension, restart home medications and monitor blood pressure Hypothyroidism, history of thyroid cancer, history of thyroidectomy, radiation treatment. Maintained on thyroid supplement Obesity, BMI 43. History of peptic ulcer disease. History of fibromyalgia VARGAS BENITEZ MD Jan 04, 2022 11:06
[2022-01-04 11:54] VITALS: BP 151/85
== END 2022-01-04 09:23 | disposition home or self-care (01) ==
LOC: EDUNIT# 17:12 → ER 17:14 → UNDOADMOB 21:15 → CSD 21:15 → UNDODISOB 01-04 09:23
PROVIDERS: ADMIT Internal Medicine; ATTEND Internal Medicine
DX: K21.00 Gastro-esophageal reflux disease with esophagitis, without bleeding (principal); K29.50 Unspecified chronic gastritis without bleeding; E11.9 Type 2 diabetes mellitus without complications
CPT/HCPCS: 36415; 71045; 71275; 74177; 80053; 80061; 82150; 83690; 83735; 83874; 84484; 85025; 85610; 85730; 93005; 93041; 96372; 96375

== ENCOUNTER → 2022-03-10 | Outpatient (CLI) | payer MEDICARE, MEDICAID ==
[~2022-03-10] MED LIST changes: +ASPI-1238 PO; +CATHETER FLUSH 10 ML SYR IVP PRN; +PANT40TA52 PO; +SUCR1TAB PO
[2022-03-10 09:25] VITALS: BP 136/75
--- NOTE | 2022-03-10 18:52 | STRESS TEST ---
RESTING AND POST EXERCISE TECHNETIUM-[address] IMAGING ORDERING PHYSICIAN: Dr. Hill. PRIMARY PHYSICIAN: [facility]. CLINICAL DIAGNOSIS: Chest discomfort. Baseline images were carried out after injection of 10.94 mCi technetium-99m tetrofosmin. This was followed by exercise on a treadmill. Hill protocol was employed. She exercised for a total of 3 minutes and 59 seconds. She attained 5.4 METs of workload. The test was stopped on account of fatigue. Heart rate and blood pressure responses to exercise were normal. A 28.6 mCi of technetium-99m tetrofosmin were injected after she had attained target heart rate and the exercise was continued for another minute. Review of images at rest and following stress does not indicate any significant perfusion defect consistent with myocardial ischemia or infarction. Gated images show normal global left ventricular systolic function with normal regional wall motion. Left ventricular ejection fraction is calculated to be 78%. CONCLUSIONS: 1. No evidence of any significant myocardial ischemia or infarction on this study. 2. Normal regional wall motion. 3. Normal global left ventricular systolic function with a calculated ejection fraction of 78%. Job ID: [id number] DocumentID: [id number] Dictated Date: 03/10/2022 15:58:00 Mud [employer] Supervisor Date: 03/10/2022 16:39:00 Dictated By: SINAN HILL MD; HECTOR; FACP; FACC;
== END ==
LOC: CARD 08:30
PROVIDERS: ATTEND Internal Medicine Cardiovascular Disease
DX: R07.89 Other chest pain (principal)
CPT/HCPCS: 78452; 93017

== ENCOUNTER → 2022-11-06 | Outpatient (CLI) | payer MEDICARE, MEDICAID ==
[~2022-11-06] MED LIST changes: -CATHETER FLUSH 10 ML SYR IVP PRN; -GABA300S2 PO; +GABA300S3 PO
--- NOTE | 2022-11-06 13:39 | Diagnostic Imaging Report ---
INDICATION: Left breast nodule, follow-up. CORRELATION is made with prior mammograms of 09/17/2020 and 03/22/2019. 2-D and 3-D bilateral diagnostic mammography was performed with CAD. Both breasts are heterogeneously dense, limiting the sensitivity of mammography. Nodular density central left breast appears less prominent on today's study and likely benign. No new mass or malignant-appearing microcalcifications are seen. There are benign calcifications present. Axillae are unremarkable. IMPRESSION: BI-RADS Category 2 No mammographic features suspicious for malignancy are identified. ACR BI-RADS Category 2: Benign findings. Result letter will be mailed to the patient. Note: At least 10% of breast cancer is not imaged by mammography. Dictated by: Dictated on workstation # [id number]
== END ==
LOC: RAD 12:51
PROVIDERS: ATTEND Internal Medicine Hematology & Oncology
DX: N63.20 Unspecified lump in the left breast, unspecified quadrant (principal); Z87.898 Personal history of other specified conditions
CPT/HCPCS: 77062; 77066